=== PATIENT | male | born 1930 | race Caucasian/White ===

== ENCOUNTER 2017-01-10 15:29 | Emergency (ER) | payer OTHER ==
[2017-01-10 15:37] VITALS: BP 145/81
--- NOTE | 2017-01-10 15:49 | PROVIDER DOCUMENTATION ---
HPI-Abdominal Pain/GI Problem - General Source: patient - History of Present Illness-ABD Nature of Presenting Problems: 86 YOWM PRESENTS TO ED WITH C/O PT STATES LOWER ABDOMINAL PAIN AND CONSTIPATION. PT STATES HE HAS BEEN ON [place] FROM SURGERY X 2 WEEKS AND PT STATES HE HAS NOT HAD A B/M SINCE 3 DAYS AGO. Abdominal Pain Onset Location: reports: generalized abdomen (LOWER) Pain Radiation: reports: no radiation Quality of Pain: reports: aching, cramping Severity in ED: reports: moderate Onset/Duration: reports: 3 days ago Timing: reports: still present Activities at Onset: reports: light activity Exposure to sick contacts?: No Modifying Factors: improves with: nothing Associated Symptoms: reports: constipation Last BM: 3 days ago Dark Stools Present?: reports: none noticed Rectal Bleeding: reports: none Rectal Pain: reports: none Emesis Description: reports: none Bruising or Bleeding Gums?: No Similar Symptoms Previously?: No Recently seen or treated by another doctor?: No <Kishor Mayer - Last Filed: 01/10/17 16:03> <Hubert Carrillo - Last Filed: 01/10/17 18:25> - General Chief Complaint: Constipation Stated Complaint: CONSTIPATION Time Seen by Provider: 01/10/17 15:49 Allergies/Adverse Reactions: Patient Allergies Allergy/AdvReac Type Severity Reaction Status Date / Time Penicillins Allergy HIVES Verified 12/22/16 08:56 Home Medications: Home Medication List Medication Instructions Recorded Confirmed Last Taken Type Multivitamins/Minerals [Centrum 1 each PO DAILY 11/02/16 12/22/16 12/21/16 21: 00 History Silver] Budesonide/Formoterol Fumarate 1 puff INH BID 11/23/16 12/22/16 12/21/16 21:00 History [Symbicort 80-4.5 Mcg Inhaler] Clotrimazole/Bmethasone Cream 1 applicatn TOP BID PRN 11/23/16 12/22/16 21:00 History [Lotrisone Cream] Finasteride [Proscar] 5 mg PO DAILY #30 tablet 12/02/16 12/22/16 12/21/16 21:00 Rx Hydrochlorothiazide 12.5 mg PO DAILY 12/21/16 12/22/16 12/21/16 21:00 History Hydrocodone/APAP 5 mg/325 mg 1 each PO Q8H PRN PRN #0 tablet 12/26/16 Unknown Rx [[place]-5] Sennosides/Docusate Sodium 1 each PO BID #30 tablet 12/26/16 Unknown Rx [Pericolace] Sulfamethoxazole/Tmp D.s. [Septra 0.5 each PO BID #15 tablet 12/26/16 Unknown Rx Ds] Review of Systems - Adult - REVIEW OF SYSTEMS - ADULT Constitutional: denies: chills, fever Eyes: reports: no symptoms reported Ears, Nose, Mouth & Throat: reports: no symptoms reported Cardiovascular: denies: chest pain, palpitations, syncope Respiratory: denies: cough, shortness of breath, wheezing Gastrointestinal: reports: abdominal pain, constipation. denies: diarrhea, nausea, vomiting Genitourinary: reports: no symptoms reported Musculoskeletal: denies: back pain, neck pain Integumentary: reports: no symptoms reported Neurological: denies: dizziness/vertigo, headache/migraines, syncope Psychiatric: reports: no symptoms reported Endocrine: reports: no symptoms reported Hematologic/Lymphatic: reports: no symptoms reported Allergic/Immunologic: reports: no symptoms reported All Other Systems: Reviewed and Negative <Kishor Mayer - Last Filed: 01/10/17 16:03> Past History - Adult - PAST MEDICAL HISTORY-ADULT Review of Records: reports: Nursing Assessment Review, Medications Reviewed - IMMUNIZATION STATUS Childhood Immunizations: See Nurse Assessment Flu Vaccine: See Nurse Assessment - SOCIAL HISTORY Smoking: denies Substance Use: denies Alcohol Use Frequency: never Living Situation: alone <Kishor Mayer - Last Filed: 01/10/17 16:03> - PAST MEDICAL HISTORY-ADULT Major Childhood Illnesses: reports: denies history Cardiovascular: reports: HTN Respiratory: reports: denies history Gastrointestinal: reports: denies history Obstetrical/Gynecological: reports: denies history Genitourinary: reports: denies history Musculoskeletal: reports: denies history Neurological: reports: denies history Endocrine/Immune: reports: denies history Other Conditions: reports: denies history - PRIOR SURGERIES/PROCEDURES Surgical/Procedure History: reports: reviewed, not pertinent - IMMUNIZATION STATUS Childhood Immunizations: See Nurse Assessment Flu Vaccine: See Nurse Assessment - FAMILY HISTORY Family History: reviewed, not pertinent <Hubert Carrillo - Last Filed: 01/10/17 18:25> Physical Exam-General - CONSTITUTIONAL General Appearance: alert, moderate distress - EYES Eyes: PERRL/EOMI, pink conjunctivae - HEAD, EARS, NOSE, MOUTH & THROAT HENMT: normocephalic/atraumatic, moist mucous membranes - NECK Neck: non-tender, full range of motion, supple - RESPIRATORY Respiratory: chest non-tender, lungs clear, normal breath sounds - CARDIOVASCULAR Cardiovascular: normal peripheral pulses, tachycardia - GASTROINTESTINAL (ABDOMEN) Abdominal Exam: normal bowel sounds, soft, tenderness (LOWER) - LYMPHATIC Lymphatic: no adenopathy - MUSCULOSKELETAL Back Exam: normal inspection, no CVA tenderness, no vertebral tenderness Extremity: normal range of motion, non-tender - SKIN Integumentary: normal color, normal turgor, warm/dry - NEUROLOGIC Neurologic: grossly normal - PSYCHIATRIC Psych/Mental Status: oriented x 3 <Kishor Mayer - Last Filed: 01/10/17 16:03> Progress - PLAN OF CARE/RESULTS Progress/Plan/Lab Results: Orders Category Date Time Status FLAT/UPRIGHT ABD/1 VIEW CHEST [RAD] Stat Exams 01/10/17 16:04 Draft Orders Category Date Time Status FLAT/UPRIGHT ABD/1 VIEW CHEST [RAD] Stat Exams 01/10/17 16:04 Draft 1700--DISCUSSED PATIENT, REVIEWED RADIOLOGY RESULTS WITH DR. HERNDON. DR. HERNDON RECOMMENDS 1 TUBE(60ML) OF [place] JELLY PER RECTUM VIA CATH TIP SYRINGE AND THEN GIVE RELISTOR INJECTION. 1814--PATIENT HAD +BM AFTER RELISTOR GIVEN. STATES ABD PAIN HAS RESOLVED AND REPORTS "FEELING BETTER AND READY TO GO HOME". - XRAY 1 XRAY Study: Abdomen Impression: Abnormal XRAY Interpretation: CONSTIPATION/IMPACTION PER RADIOLOGIST REPORT. <Hubert Carrillo - Last Filed: 01/10/17 18:25> Departure <Kishor Mayer - Last Filed: 01/10/17 16:03> - Departure Time of Disposition Order: 18:20 Certified Medical Emergency: Emergent <Hubert Carrillo - Last Filed: 01/10/17 18:25> - Departure DIAGNOSIS: Constipation due to pain medication Disposition: HOME 01 Condition: Good Additional Instructions: USE OVER THE COUNTER STOOL SOFTENER WHILE TAKING PAIN MEDICATIONS TO HELP AVOID CONSTIPATION. Referrals: Luna Card MD [Primary Care Provider] - Attestation - Scribe Verification/Attestation Scribe:: Kishor Mayer Acting as Scribe for:: Hubert Carrillo Scribe documention review:: This chart was documented by a scribe and accurately reflects the service the provider performed and the decisions made by the provider. <Kishor Mayer - Last Filed: 01/10/17 16:03> - Physician/ ROMAN Attestation Patient care was provided by Advanced Practice Provider:: Yes Advanced Practice Provider:: Hubert Carrillo Advanced Practice Provider documentation review:: The Mid-level provider documentation, treatment plan and medical decision making was reviewed by the physician who agrees with all treatment and medical decision making by the MLP. <Hubert Carrillo - Last Filed: 01/10/17 18:25> Physician Attestation
--- NOTE | 2017-01-10 16:50 | Diag Imaging Result Document ---
PROCEDURE NAME: FLAT/UPRIGHT ABD/1 VIEW CHEST - 01/10/2017 FRONTAL CHEST X-RAY AND 2 VIEWS OF THE ABDOMEN: COMPARISON: 11/23/2016. FINDINGS: There is some colon under the right hemidiaphragm, which has occurred previously. Otherwise, the lungs are clear and the heart size is normal. There is severe constipation with a rectal stool impaction. There is a rectal stool ball measuring about 8 x 16 cm. No small-bowel obstruction or free air. IMPRESSION: Severe constipation with rectal stool impaction.
[2017-01-10] MEDS ORDERED: RELISTOR SUBQ ONE (17:06)
== END 2017-01-10 18:32 | disposition home or self-care (01) ==
LOC: P.ED 15:29
DX: K59.03 Drug induced constipation (principal); T50.905A Adverse effect of unspecified drugs, medicaments and biological substances, initial encounter; R10.30 Lower abdominal pain, unspecified; R10.84 Generalized abdominal pain; R00.0 Tachycardia, unspecified; R10.819 Abdominal tenderness, unspecified site; I10 Essential (primary) hypertension; Z79.899 Other long term (current) drug therapy
CPT/HCPCS: 74022

== ENCOUNTER 2019-11-08 09:44 | Inpatient (IN) ==
--- NOTE | 2019-11-08 10:15 | PROVIDER DOCUMENTATION ---
This chart was entered by Felicity Bagley Scribe, acting as scribe for Loree Prescott CRNP. HPI-General Adult - General Chief Complaint: SEPSIS ALERT - D Stated Complaint: BACK PAIN Time Seen by Provider: 11/08/19 09:45 Source: patient Allergies/Adverse Reactions: Patient Allergies Allergy/AdvReac Type Severity Reaction Status Date / Time Penicillins Allergy HIVES Verified 07/09/18 10:52 Home Medications: Home Medication List Medication Instructions Recorded Confirmed Last Taken Type Furosemide 20 mg PO DAILY 07/08/18 11/08/19 07/09/18 06:00 History Potassium Chloride E.r. [Micro-K] 10 meq PO DAILY 07/08/18 11/08/19 07/09/18 06:00 History Tamsulosin HCl 0.4 mg PO DAILY 07/08/18 11/08/19 07/09/18 06:00 History Iron Carbonyl/Vit C/Vit B12/FA 1 ea PO DAILY #30 tab 07/13/18 11/08/19 Unknown Rx [Icar-C Plus] Losartan Potassium 1 tab PO DAILY 11/08/19 11/08/19 Unknown History Metoprolol Tartrate 1 tab PO BID 11/08/19 11/08/19 Unknown History - History of Present Illness -Gen Adult Nature of Presenting Problems: 89 y/o male presents to ED with L lower back pain onset 3 days ago. Pt reports getting in and out of bed is painful. Pt denies injury or urinary symptoms. Pt states he has not had a bowel movement in 4 days. Pt is alert and oriented. Location of Pain/Injury: reports: back Pain Radiation: reports: no radiation Quality of Pain: reports: sharp Severity: reports: moderate Onset/Duration: reports: 3 days ago, 4 days ago Timing: reports: still present Context/Activities at Onset: reports: none Modifying Factors: worse with: movement, palpation Associated Symptoms: reports: back/neck pain (L lower back), constipation Similar Symptoms Previously?: No Recently seen or treated by another doctor?: No Review of Systems - Adult - REVIEW OF SYSTEMS - ADULT Constitutional: denies: chills, fever Eyes: reports: no symptoms reported Ears, Nose, Mouth & Throat: reports: no symptoms reported Cardiovascular: denies: chest pain, palpitations Respiratory: denies: cough, shortness of breath Gastrointestinal: reports: constipation. denies: abdominal pain, diarrhea, nausea, vomiting Genitourinary: reports: no symptoms reported Musculoskeletal: reports: back pain (L lower). denies: joint pain Integumentary: reports: no symptoms reported Neurological: reports: no symptoms reported Psychiatric: reports: no symptoms reported Endocrine: reports: no symptoms reported Hematologic/Lymphatic: reports: no symptoms reported Allergic/Immunologic: reports: no symptoms reported All Other Systems: Reviewed and Negative Past History - Adult - PAST MEDICAL HISTORY-ADULT Review of Records: reports: Old Records Reviewed, Nursing Assessment Review, Medications Reviewed Major Childhood Illnesses: reports: denies history Cardiovascular: reports: HTN Respiratory: reports: denies history Gastrointestinal: reports: denies history Obstetrical/Gynecological: reports: denies history Genitourinary: reports: denies history Musculoskeletal: reports: denies history Neurological: reports: denies history Endocrine/Immune: reports: denies history Other Conditions: reports: cataract/glaucoma - PRIOR SURGERIES/PROCEDURES Surgical/Procedure History: reports: reviewed, not pertinent, tonsillectomy, orthopedic (extremity) (bilateral knees), joint replacement (knee), other (cataract removal; prostate) - IMMUNIZATION STATUS Childhood Immunizations: See Nurse Assessment Flu Vaccine: See Nurse Assessment - FAMILY HISTORY Family History: reviewed, not pertinent - SOCIAL HISTORY Smoking: non-smoker Substance Use: none/never Alcohol Use Frequency: never Living Situation: family Physical Exam-General - PHYSICAL EXAM-ADULT Initial Vital Signs Reviewed: Yes - CONSTITUTIONAL General Appearance: appears well, alert, no apparent distress - EYES Eyes: PERRL/EOMI, pink conjunctivae - HEAD, EARS, NOSE, MOUTH & THROAT HENMT: normocephalic/atraumatic, moist mucous membranes, normal ENT inspection - NECK Neck: non-tender, full range of motion - RESPIRATORY Respiratory: chest non-tender, lungs clear, normal breath sounds - CARDIOVASCULAR Cardiovascular: normal peripheral pulses, regular rate, rhythm - GASTROINTESTINAL (ABDOMEN) Abdominal Exam: normal bowel sounds, non tender, soft - MUSCULOSKELETAL Back Exam: normal inspection, no vertebral tenderness, CVA tenderness (L) Extremity: normal range of motion - SKIN Integumentary: normal color, warm/dry - NEUROLOGIC Neurologic: grossly normal - PSYCHIATRIC Psych/Mental Status: normal mood/affect, normal thought content, normal thought process, oriented x 3 Progress - PLAN OF CARE/RESULTS Progress/Plan/Lab Results: Vital Signs - 8 hr 11/08/19 09:49 Temperature 97.4 F L Pulse Rate 90 Respiratory Rate 25 H Blood Pressure 141/98 O2 Sat by Pulse Oximetry 92 L Orders Category Date Time Status Cardiac Monitoring DIRECTED Care 11/08/19 09:54 Active IV Insertion ORDERED Care 11/08/19 09:54 Active Notify MD of + Sepsis Screen NOW Care 11/08/19 09:54 Active Notify Physician As Ordered Care 11/08/19 09:54 Active CHEST-1 VIEW [RAD] Stat Exams 11/08/19 09:54 Taken BLOOD CULTURE [BLDCUL] Stat Lab 11/08/19 09:54 Uncollected CBC WITH DIFF [HEME] Stat Lab 11/08/19 09:54 Uncollected CK PROFILE [SP CHEM] Stat Lab 11/08/19 09:54 Uncollected COMPREHENSIVE METABOLIC PANEL [CHEM] Stat Lab 11/08/19 09:54 Uncollected LACTATE, PLASMA [CHEM] Lab 11/08/19 10:00 Uncollected LACTATE, PLASMA [CHEM] Lab 11/08/19 13:00 Uncollected LACTATE, PLASMA [CHEM] Lab 11/08/19 16:00 Uncollected PROTIME WITH INR [COAG] Stat Lab 11/08/19 09:54 Uncollected PTT [COAG] Stat Lab 11/08/19 09:54 Uncollected TROPONIN T Stat Lab 11/08/19 09:54 Uncollected URINALYSIS W/POSS RFLX CULT [URINALYSIS] Stat Lab 11/08/19 09:45 Uncollected Oxygen Device Stat Oth 11/08/19 09:54 Active Laboratory Tests 11/08/19 11/08/19 11/08/19 10:19 10:19 10:19 WBC 10.29 RBC 4.60 L Hgb 14.7 Hct 44.6 MCV 97.0 MCH 32.0 H MCHC 33.0 RDW Std Deviation 13.9 Plt Count 206 MPV 10.0 Immature Gran % (Auto) 0.2 Neut % (Auto) 83.7 H Lymph % (Auto) 6.4 L [place] % (Auto) 8.6 Eos % (Auto) 0.8 Baso % (Auto) 0.3 Immature Gran # (Auto) 0.02 Neut # (Auto) 8.62 H Lymph # (Auto) 0.66 L [place] # (Auto) 0.88 H Eos # (Auto) 0.08 Baso # (Auto) 0.03 PT INR PTT (Actin FS) Sodium 141 Potassium 5.0 Chloride 103 Carbon Dioxide 23 L Anion Gap 15 BUN 38 H Creatinine 1.6 H Estimated GFR/1.73 m2 41 BUN/Creatinine Ratio 24 Glucose 117 H Calculated Osmolality 291 Calcium 9.4 Total Bilirubin 1.14 H AST 28 ALT 16 Alkaline Phosphatase 154 H Creatine Kinase 99 Troponin T Sws-B-Mncrvorkgvl Pept Total Protein 6.5 Albumin 4.1 Globulin 2.4 Albumin/Globulin Ratio 1.7 Plasma Lactate 1.3 Urine Source Urine Color Urine Turbidity Urine pH Ur Specific [place] Urine Protein Ur Glucose (Stick) Ur Ketones (Stick) Urine Blood Urine Nitrite Urine Bilirubin Urobilinogen Dipstick Urine Leukocytes Urine WBC (Auto) Urine RBC (Auto) U Epithel Cells (Auto) Urine Bacteria (Auto) Urine Crystals Small Round Cells Urine Casts Urine Yeast-like Cells 11/08/19 11/08/19 11/08/19 10:19 10:19 10:19 WBC RBC Hgb Hct MCV MCH MCHC RDW Std Deviation Plt Count MPV Immature Gran % (Auto) Neut % (Auto) Lymph % (Auto) [place] % (Auto) Eos % (Auto) Baso % (Auto) Immature Gran # (Auto) Neut # (Auto) Lymph # (Auto) [place] # (Auto) Eos # (Auto) Baso # (Auto) PT 18.5 H INR 1.51 PTT (Actin FS) 35.9 Sodium Potassium Chloride Carbon Dioxide Anion Gap BUN Creatinine Estimated GFR/1.73 m2 BUN/Creatinine Ratio Glucose Calculated Osmolality Calcium Total Bilirubin AST ALT Alkaline Phosphatase Creatine Kinase Troponin T 0.118 H Ldu-M-[place]ucke Pept 2743 H Total Protein Albumin Globulin Albumin/Globulin Ratio Plasma Lactate Urine Source Urine Color Urine Turbidity Urine pH Ur Specific [place] Urine Protein Ur Glucose (Stick) Ur Ketones (Stick) Urine Blood Urine Nitrite Urine Bilirubin Urobilinogen Dipstick Urine Leukocytes Urine WBC (Auto) Urine RBC (Auto) U Epithel Cells (Auto) Urine Bacteria (Auto) Urine Crystals Small Round Cells Urine Casts Urine Yeast-like Cells 11/08/19 11:20 WBC RBC Hgb Hct MCV MCH MCHC RDW Std Deviation Plt Count MPV Immature Gran % (Auto) Neut % (Auto) Lymph % (Auto) [place] % (Auto) Eos % (Auto) Baso % (Auto) Immature Gran # (Auto) Neut # (Auto) Lymph # (Auto) [place] # (Auto) Eos # (Auto) Baso # (Auto) PT INR PTT (Actin FS) Sodium Potassium Chloride Carbon Dioxide Anion Gap BUN Creatinine Estimated GFR/1.73 m2 BUN/Creatinine Ratio Glucose Calculated Osmolality Calcium Total Bilirubin AST ALT Alkaline Phosphatase Creatine Kinase Troponin T Zik-F-Bcpwfqhzguo Pept Total Protein Albumin Globulin Albumin/Globulin Ratio Plasma Lactate Urine Source CLEAN CATCH Urine Color YELLOW Urine Turbidity CLEAR Urine pH 6.0 Ur Specific [place] 1.020 Urine Protein 50 A Ur Glucose (Stick) NEGATIVE Ur Ketones (Stick) NEGATIVE Urine Blood SMALL A Urine Nitrite NEGATIVE Urine Bilirubin NEGATIVE Urobilinogen Dipstick NORMAL Urine Leukocytes NEGATIVE Urine WBC (Auto) <10 Urine RBC (Auto) <10 U Epithel Cells (Auto) <10 Urine Bacteria (Auto) NEGATIVE Urine Crystals NONE SEEN Small Round Cells Not Reportable Urine Casts Not Reportable Urine Yeast-like Cells Not Reportable Result Diagrams: 11/08/19 10:19 11/08/19 10:19 - EKG 1 Time of EKG reading by physician:: 11:07 EKG Read and Signed by:: Dunia Tay EKG Interpretation (*Must complete 3 of following elements*): Abnormal Rate: 87 Rhythm: Afib [place]: left QRS: other (low voltage QRS; possible lateral infarct) MN Interval: normal ST Wave: normal Comments: No STEMI. -Dr. Tay - XRAY 1 XRAY Study: Chest ([facility] - [address] [place] [address] [address], [place] [address] [facility] - [address] [place] [address] Department of Imaging Patient: CARISA GUERRA Date: 11/08/19MR#: [id number] : 1930DM Status: REG ERAt#: [id number] Age/Sex: 89/MRoom/Bed: Loc: ED Ordering Physician: Loree Prescott Family Physician: Luna Card MD Reason for Procedure: positive sepsis screen ___ Signed EXAM: CHEST-1 VIEW INDICATION: positive sepsis screen TECHNIQUE: One view COMPARISON: 07/09/2018 FINDINGS: There is elevation of the right hemidiaphragm like the previous study. There is blunting of the left costophrenic angle suggesting a possible small effusion. The left costophrenic a ngle is indistinct. This may represent atelectasis +/- infiltrate. There is stable cardiomegaly. Central vasculature is unremarkable. IMPRESSION: Cardiomegaly with possible small effusion and questionable atelectasis and/or infiltrate at the left lung base. Electronically signed by Desmond Burr 11/08/2019 11:29 AM 11/08/19 1129 Interpreting Physician: Desmond Burr MD Dictated Date/Time: 11/08/19 1127 cc: Loree Prescott; Luna Card MD) Impression: See EMR Report ([facility] - [address] [place] [address] [address], [place] [address] [facility] - [address] [place] [address] Department of Imaging Patient: CARISA GUERRA Date: 11/08/19#: [id number] : 2ADM Status: REG ERAcct#: [id number] Age/Sex: 89/MRoom/Bed: Loc: ED Ordering Physician: Loree Prescott Family Physician: Luna Card MD Reason for Procedure: positive sepsis screen Signed EXAM: CHEST-1 VIEW INDICATION: positive sepsis screen TECHNIQUE: One view COMPARISON: 07/09/2018 FINDINGS: There is elevation of the right hemidiaphragm like the previous study. There is blunting of the left costophrenic angle suggesting a p ossible small effusion. The left costophrenic angle is indistinct. This may represent atelectasis +/- infiltrate. There is stable cardiomegaly. Central vasculature is unremarkable. IMPRESSION: Cardiomegaly with possible small effusion and questionable atelectasis and/or infiltrate at the left lung base. Electronically signed by Desmond Burr 11/08/2019 11:29 AM 11/08/19 1129 Interpreting Physician: Desmond Burr MD Dictated Date/Time: 11/08/19 1127 cc: Loree Prescott; Luna Card MD) XRAY Interpretation: See note - CONSULTS/PCP/HOSPITALIST Notification #1 *Consult/PCP/Hospitalist*: Dr. Card Time Discussed: 13:12 Reason/Comments: Admission Consult Disposition: Admit (Order stat Echo and admit to PVC) Departure - Departure Date of Disposition Decision: 11/08/19 Time of Disposition Decision: 11:55 DIAGNOSIS: Shortness of breath, New onset atrial fibrillation Disposition: ADMITTED INPATIENT 09 Certified Medical Emergency: Emergent Condition: Stable Referrals and Follow-Ups: Luna Card MD [Primary Care Provider] - - Critical Care Note This patient required my direct & personal management of CC.: No Attestation - Physician/ ROMAN Attestation Patient care was provided by Advanced Practice Provider:: Yes Advanced Practice Provider:: Loree Prescott Advanced Practice Provider documentation review:: The Mid-level provider documentation, treatment plan and medical decision making was reviewed by the physician who agrees with all treatment and medical decision making by the P. The physician spent face to face time with patient:: No Advanced Practice Provider documentation review:: Supervising physician onsite and consulted in the evaluation and care of this patient. The physician did not have a face to face encounter with the patient. This chart was documented by the indicated scribe, (Felicity Bagley Scribe) and accurately reflects the services I performed and decisions made by me, Loree Prescott CRNP, as attested by the provider's signature.
[2019-11-08 10:37] LABS: BASO# 0.03 X1000 (0.0-0.2); BASO% 0.3 % (0.0-0.8); EOS# 0.08 X1000 (0.0-0.7); EOS% 0.8 % (0.0-10.0); HEMATOCRIT 44.6 % (42.0-52.0); HEMOGLOBIN 14.7 g/dL (14.0-18.0); IMM GRAN# 0.02 X1000 (0.0-0.04); IMM GRAN% 0.2 % (0.0-0.5); LYMPH# 0.66 X1000 (1.2-3.4); LYMPH% 6.4 % (20.5-51.1); MONO# 0.88 X1000 (0.11-0.59); MONO% 8.6 % (1.7-9.3); NEUT# 8.62 X1000 (1.4-6.5); NEUT% 83.7 % (42.2-75.2); PLT 206 X1000 (130-400); RDW 13.9 % (11.5-14.5); WBC 10.29 X1000 (4.8-10.8)
[2019-11-08 10:51] LABS: INR 1.51; PROTIME 18.5 Seconds (11.0-16.0); PTT 35.9 Seconds (22.3-41.8)
[2019-11-08 11:02] LABS: ALB/GLOB RATIO 1.7; ALBUMIN 4.1 g/dL (3.5-5.0); CALCIUM 9.4 mg/dL (8.8-10.2); CREATININE 1.6 mg/dL (0.7-1.2); TOTAL BILIRUBIN 1.14 mg/dL (0.20-1.00); TOTAL PROTEIN 6.5 g/dL (6.3-8.3)
[2019-11-08 11:24] LABS: URINE SOURCE CLEAN CATCH
[2019-11-08 11:32] LABS: BILIRUBIN URINE NEGATIVE (NEGATIVE); BLOOD URINE SMALL (NEGATIVE); COLOR YELLOW; GLUCOSE URINE NEGATIVE (NEGATIVE); KETONE URINE NEGATIVE (NEGATIVE); LEUKOCYTES URINE NEGATIVE (NEGATIVE); NITRITE URINE NEGATIVE (NEGATIVE); PROTEIN URINE 50 mg/dL (NEGATIVE); TURBIDITY URINE CLEAR (CLEAR); UROBILINOGEN URINE NORMAL (NORMAL)
--- NOTE | 2019-11-08 11:32 | Diag Imaging Result Doc PS360 ---
EXAM: CHEST-1 VIEW INDICATION: positive sepsis screen TECHNIQUE: One view COMPARISON: 07/09/2018 FINDINGS: There is elevation of the right hemidiaphragm like the previous study. There is blunting of the left costophrenic angle suggesting a possible small effusion. The left costophrenic angle is indistinct. This may represent atelectasis +/- infiltrate. There is stable cardiomegaly. Central vasculature is unremarkable. IMPRESSION: Cardiomegaly with possible small effusion and questionable atelectasis and/or infiltrate at the left lung base. Electronically signed by Desmond Burr 11/08/2019 11:29 AM
[2019-11-08 11:40] LABS: UR EPITHELIAL CELLS <10 /HPF (<10); URINE BACTERIA NEGATIVE /HPF; URINE RBC <10 /HPF (<10); URINE WBC <10 /HPF (<10)
[2019-11-08 11:41] LABS: URINE CRYSTALS NONE SEEN
[2019-11-08] MEDS ORDERED: ROCEPHIN 1 GM in NS 50 ML IV ONE (11:45)
[2019-11-08] MEDS ORDERED: LASIX IV ONE (12:32)
[2019-11-08] MEDS ORDERED: CARDIZEM IV ONE (12:34)
[2019-11-08] MEDS ORDERED: ZITHROMAX 500 MG/NS 500 MG/250 ML IVPB IV ONE (12:44)
[2019-11-08 13:08] LABS: ALLEN TEST YES; BE -3.7 mmoll (-3.0-3.0); BLOOD TYPE ARTERIAL; METHB 1.1 % (0.0-1.5); O2(CT) 21.7 mL/dL (15.0-23.0); O2HB 96.1 % (95.0-99.0); PCO2(98.6) 35 mmHg (35-45); PO2(98.6) 96 mmHg (60-100); SAMPLE BLOOD; SAO2 99.3 % (95.0-100.0); pH(98.6) 7.38 (7.35-7.45)
[2019-11-08 13:09] LABS: MODALITY CANNULA
--- NOTE | 2019-11-08 13:39 | EKG Report ---
Test Performed on : 11/08/2019 11:03:19 AM Test Reason : BACK PAIN Blood Pressure : / mmHG Vent. Rate : 087 BPM Atrial Rate : 500 BPM P-R Int : 000 ms QRS Dur : 090 ms QT Int : 368 ms P-R-T Axes : 000 -38 096 degrees QTc Int : 442 ms Atrial fibrillation. Left axis deviation Low voltage QRS Possible Lateral infarct , age undetermined Abnormal ECG When compared with ECG of 11-JUL-2018 07:26, No significant change was found Unconfirmed Result
--- NOTE | 2019-11-08 16:21 | Diag Imaging Result Doc PS360 ---
EXAM: KUB ABDOMEN 11/08/2019 HISTORY: abd pain TECHNIQUE: KUB COMMENT: There is gas and stool throughout the colon. There is no evidence of bowel obstruction organomegaly or mass. Compared to 01/10/2017 the quantity of stool and dilatation of the colon present at that time has diminished. IMPRESSION: Constipation. Electronically signed by Philippe Arshad 11/08/2019 4:18 PM
--- NOTE | 2019-11-08 16:28 | ECHO REPORT ---
ORDER DATE: 11/08/2019 PROCEDURE: 2D echocardiogram. INTERPRETING PHYSICIAN: Bryant Squires MD ECHOCARDIOGRAPHIC MEASUREMENTS: 1. Interventricular septum 1.7. 2. Left ventricular posterior wall 1.4. 3. Diastolic diameter 5.6. 4. Left atrium 4.3 cm. 5. Aorta 3.4. SUMMARY OF THE 2-DIMENSIONAL IMAGIN. Mildly dilated left ventricle with an estimated ejection fraction of 25 to 30 percent. There is global hypokinesis. 2. Aortic valve leaflets are trileaflet. 3. Mitral valve was normal. There is mitral annular calcification. 4. Tricuspid valve was normal. 5. There is moderate mitral regurgitation. There is no aortic stenosis or regurgitation. There is tricuspid regurgitation. Peak velocity across the tricuspid valve was 3.5 m/sec. 6. There is moderate circumferential pericardial effusion. There is no evidence of tamponade. cc: MD Reno Cortes MD
[2019-11-08] MEDS ORDERED: MOTRIN PO ONE (17:38)
[2019-11-08] MEDS ORDERED: SODIUM CHLORIDE 0.9% INJ SCH (19:00)
[2019-11-08] MEDS ORDERED: NEXIUM IV SCH (19:00)
[2019-11-08] MEDS: SODIUM CHLORIDE 0.9% INJ SCH (20:02)
[2019-11-08] MEDS: LOVENOX SUBQ SCH (20:02)
[2019-11-08] MEDS: LOPRESSOR PO SCH (20:02)
[2019-11-08] MEDS: SOLU-MEDROL IV SCH (20:02)
[2019-11-08] MEDS: PROTONIX IV SCH (20:02)
[2019-11-09] MEDS: SOLU-MEDROL IV SCH ×3 (03:39→20:09)
[2019-11-09] MEDS: TYLENOL PO PRN ×2 (03:39→14:27)
--- NOTE | 2019-11-09 07:21 | HISTORY AND PHYSICAL ---
CHIEF COMPLAINT: Lower back pain and difficulty in breathing. HISTORY OF PRESENT ILLNESS: This is an 89-year-old white gentleman who is well known to me. Basically, he came in with lower back pain, not able to walk. The patient was seen in the emergency room. He was found to have low lung volumes and cardiomegaly. He has a chronic atrial fibrillation and cardiomegaly due to chronic pericardial effusion. There is no tamponade in the past. 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 Anyhow, he is not able to walk, and basically admitted to the hospital for shortness of breath and also pain control, physical therapy, and he was slowly deconditioning. There is no help at home. PAST MEDICAL HISTORY: Chronic renal failure, tinea cruris, metabolic syndrome, hypertension, chronic atrial fibrillation, chronic pericardial effusion without tamponade, right rotator cuff repair, osteoarthritis of left knee and right hip. He has flat feet. BPH, status post TURP. Basal cell cancer of the nose. Let fibula fracture. PAST SURGICAL HISTORY: Tonsillectomy, bilateral knee arthroplasty, bilateral cataract surgery, history of left fibular fracture, and right heel fracture. ALLERGIES: Reported to penicillin. SOCIAL HISTORY: Single. No children. Retired. Lives in [place]. No smoking. No alcohol. FAMILY HISTORY: Father of heart failure at 69. Mom of respiratory failure at 94. HEALTH MAINTENANCE: Flu vaccine in 2019. Pneumococcal vaccine 13 was given in 2013. MEDICATIONS: Prior to admission: 1. Potassium 10 mEq daily. 2. Flomax 0.4 daily. 3. Lasix 20 daily. 4. Losartan 50 daily. 5. Metoprolol 25 daily. 6. Icar C Plus 1 tablet daily. REVIEW OF SYSTEMS: HEENT: No headache. No vision problem. No earache. No sore throat. Neck: No goiter. No lymphadenopathy. No bruit. Cardiopulmonary: No chest pain, shortness of breath, PND, orthopnea. GI: No nausea, vomiting, abdominal pain. Extremities: Lower back pain, joint pains, not able to walk, localized pain. No radiation. No weakness. Neurological: No neurological symptoms or weakness. PHYSICAL EXAMINATION: VITALS: Afebrile. Pulse is 90, and blood pressure is slightly elevated. GENERAL: The patient is in a lot of pain. HEENT: Atraumatic, normocephalic. Pupils equal, and react to light. Nose and throat within normal limits. NECK: Supple. No lymphadenopathy. No goiter. CHEST: Bilateral air entry. HEART: Distant heart sounds. ABDOMEN: Belly is soft, obese, nontender. EXTREMITIES: No peripheral edema or cyanosis. No obvious neurological deficits. INVESTIGATIONS: 1. White cell count 10, hematocrit 44 and platelets 206,000. PT 18, INR 1.5. ABG pH is 7.38, pCO2 35, PO2 96 on 28%. SMA 7: BUN 38, creatinine 1.6 and glucose 117. Troponin slightly positive. ProBNP 2700. CK was negative. Urinalysis is clear. 2. Abdominal x-ray with constipation. 3. Echocardiography report with chronic pericardial effusion. No tamponade. LV function reduced to 25 to 30 percent. 4. EKG chronic atrial fibrillation. 5. Chest x-ray low lung volumes, cardiomegaly, and possible infiltrate in the lung bases. ASSESSMENT AND PLAN: 1. An 89-year-old white male admitted to the hospital with intractable back pain. Plan is IV steroids. Follow up on x-rays and PT consult. 2. Deconditioning. 3. Constipation. MiraLAX. 4. Congestive heart failure, systolic dysfunction, chronic atrial fibrillation. Continue on metoprolol and losartan. 5. DVT prophylaxis with Lovenox and GI prophylaxis with IV Nexium. 6. BPH status post TURP on Flomax. 7. Chronic kidney disease stable and cardiomegaly, chronic pericardial effusion. Followup on echo. No signs of tamponade. Incentive spirometry. Will follow up over the weekend. If no better, we will do further workup on the back. cc: Reno Card MD
[2019-11-09] MEDS: MIRALAX PO SCH (08:20)
[2019-11-09] MEDS: LOPRESSOR PO SCH ×2 (08:20→20:09)
[2019-11-09] MEDS: LASIX PO SCH (08:20)
[2019-11-09] MEDS: ICAR-C PLUS PO SCH (08:20)
[2019-11-09] MEDS: FLOMAX PO SCH (08:20)
[2019-11-09] MEDS: COZAAR PO SCH (08:21)
[2019-11-09] MEDS ORDERED: MICRO-K PO SCH (09:00)
[2019-11-09] MEDS: KLOR-CON PO SCH (09:15)
--- NOTE | 2019-11-09 14:20 | PROGRESS NOTE ---
DATE: 11/09/2019 Mr. Estrada was admitted yesterday. He has cardiomegaly with either a pleural effusion or infiltrate on the left side. He has chronic constipation and chronic atrial fibrillation. EKG shows a possible lateral wall OH. Echocardiogram revealed global hypokinesis, moderate mitral regurgitation, moderate pericardial effusion, and ejection fraction of 25% to 30%. Overall, condition is unchanged. We will continue with the current management on him. -6 cc: MD Reno Parsons MD
[2019-11-09] MEDS: ROCEPHIN 1 GM in NS 50 ML IV SCH (14:22)
--- NOTE | 2019-11-09 14:24 | PROGRESS NOTE ---
DATE: 11/09/2019 ADDENDUM REPORT: For his possible infiltrate on the left side he got IV ceftriaxone and azithromycin IV yesterday and it has not been restarted. We will probably give him ceftriaxone 1 g IV daily as his white count is 10.29 and he has some persistent cough and mild shortness of breath. The patient has the possibility of left lower lobe pneumonia. cc: MD Reno Parsons MD
[2019-11-09] MEDS: SODIUM CHLORIDE 0.9% INJ SCH (20:09)
[2019-11-09] MEDS: PROTONIX IV SCH (20:09)
[2019-11-09] MEDS: LOVENOX SUBQ SCH (20:09)
[2019-11-10] MEDS: TYLENOL PO PRN ×2 (00:35→21:20)
[2019-11-10] MEDS: SOLU-MEDROL IV SCH ×3 (03:24→21:20)
[2019-11-10] MEDS: ICAR-C PLUS PO SCH (08:01)
[2019-11-10] MEDS: LASIX PO SCH (08:01)
[2019-11-10] MEDS: FLOMAX PO SCH (08:01)
[2019-11-10] MEDS: KLOR-CON PO SCH (08:01)
[2019-11-10] MEDS: MIRALAX PO SCH (08:01)
[2019-11-10] MEDS: LOPRESSOR PO SCH ×2 (08:01→21:21)
[2019-11-10] MEDS: COZAAR PO SCH (08:01)
--- NOTE | 2019-11-10 11:01 | Diag Imaging Result Doc PS360 ---
EXAM: LUMBAR SPINE 11/10/2019 HISTORY: back pain TECHNIQUE: Lumbosacral spine with obliques six views COMMENT: There is marked osteopenia. There is near vertebral plana of the L1 vertebral body particularly anteriorly. Due to motion the study is somewhat suboptimal on some of the images. There is marked disc space narrowing at the L to three level. There are no previous lumbar spine series available for comparison however in comparison with the abdominal series from 01/10/2017 the L1 vertebral compression was not present previously. There is no evidence of subluxation. IMPRESSION: Compression fracture of L1 of uncertain age. Severe degenerative disc disease at L2-3. Osteoporosis. Electronically signed by Philippe Arshad 11/10/2019 10:59 AM
--- NOTE | 2019-11-10 12:00 | PROGRESS NOTE ---
DATE: 11/10/2019 Mr. Estrada says he is feeling better. He has chronic atrial fibrillation, pericardial effusion, congestive heart failure. He has severe back pain. Lumbosacral spine movements are painful. He is on steroids. His blood pressure was 154/97. So far, the culture studies have been negative on him. We will x-ray his lumbosacral spine. Overall condition is stable. -1 cc: MD Reno Parsons MD
[2019-11-10] MEDS: ROCEPHIN 1 GM in NS 50 ML IV SCH (14:23)
[2019-11-10] MEDS: PROTONIX IV SCH (21:20)
[2019-11-10] MEDS: SODIUM CHLORIDE 0.9% INJ SCH (21:21)
[2019-11-10] MEDS: LOVENOX SUBQ SCH (21:21)
[2019-11-11] MEDS: SOLU-MEDROL IV SCH ×4 (05:05→23:13)
[2019-11-11] MEDS: LASIX PO SCH (08:04)
[2019-11-11] MEDS: KLOR-CON PO SCH (08:04)
[2019-11-11] MEDS: COZAAR PO SCH (08:04)
[2019-11-11] MEDS: FLOMAX PO SCH (08:04)
[2019-11-11] MEDS: ICAR-C PLUS PO SCH (08:04)
[2019-11-11] MEDS: MIRALAX PO SCH (08:04)
[2019-11-11] MEDS: LOPRESSOR PO SCH ×2 (08:04→20:20)
[2019-11-11] MEDS: TYLENOL PO PRN ×2 (08:08→20:19)
[2019-11-11] MEDS: ROCEPHIN 1 GM in NS 50 ML IV SCH (13:31)
[2019-11-11] MEDS: LOVENOX SUBQ SCH (20:20)
[2019-11-11] MEDS: PROTONIX IV SCH (20:20)
[2019-11-11] MEDS: SODIUM CHLORIDE 0.9% INJ SCH (23:13)
--- NOTE | 2019-11-12 04:06 | PROGRESS NOTE ---
DATE: 11/11/2019 SUBJECTIVE: X-rays reviewed. Back pain is better. He had a chronic L1 compression fracture, and severe DJD changes at L2-L3 with osteoporosis. Pain is much better. He did not have any chest pain or shortness of breath. He is ambulating well with physical therapy. REVIEW OF SYSTEMS: None reported. Events noted over the weekend. PHYSICAL EXAMINATION: Vital Signs: Temperature is 97.7 degrees, pulse 66, blood pressure 113/65, and 94% on room air. HEENT: Within normal limits. Neck: Supple. No lymphadenopathy. No goiter. Abdomen: Belly is soft and nontender. Neurologic: No neurological deficits. LABORATORY: Blood cultures were negative. ASSESSMENT AND PLAN: 1. Back pain due to L1 compression fracture and DJD changes. Continue treatment with steroids, got better. 2. Chronic pericardial effusion, stable. 3. Chronic kidney disease stable. 4. Chronic systolic heart failure nonischemic cardiomyopathy. Continue on Cozaar, Lasix, and metoprolol. 5. DVT/GI prophylaxis as per order sheet. 6. Continue physical therapy. We will check the labs in the morning. If he is stable, consider rehab versus outpatient home health. LEVEL OF DOCUMENTATION: 25 minutes. cc: Reno Card MD
[2019-11-12] MEDS: SOLU-MEDROL IV SCH (06:12)
[2019-11-12 06:56] LABS: CALCIUM 9.6 mg/dL (8.8-10.2); CREATININE 1.7 mg/dL (0.7-1.2)
[2019-11-12 07:11] LABS: HEMATOCRIT 47.4 % (42.0-52.0); HEMOGLOBIN 15.3 g/dL (14.0-18.0); IMM GRAN# 0.02 X1000 (0.0-0.04); IMM GRAN% 0.2 % (0.0-0.5); LYMPH# 0.47 X1000 (1.2-3.4); LYMPH% 4.2 % (20.5-51.1); MCH 31.3 PG (27-31); MCHC 32.3 g/dL (33-37); MCV 96.9 FL (81-99); MONO# 0.48 X1000 (0.11-0.59); MONO% 4.2 % (1.7-9.3); MPV 10.8 FL (7.4-10.4); NEUT# 10.35 X1000 (1.4-6.5); NEUT% 91.4 % (42.2-75.2); PLT 220 X1000 (130-400); RBC 4.89 XMIL (4.7-6.1); RDW 13.6 % (11.5-14.5); WBC 11.32 X1000 (4.8-10.8)
[2019-11-12 07:30] LABS: POTASSIUM 6.4 mmol/L (3.5-5.1)
[2019-11-12] MEDS ORDERED: KAYEXALATE PO ONE (07:53)
[2019-11-12] MEDS: KLOR-CON PO SCH (08:51)
[2019-11-12] MEDS: FLOMAX PO SCH (08:51)
[2019-11-12] MEDS: LASIX PO SCH (08:51)
[2019-11-12] MEDS: ICAR-C PLUS PO SCH (08:51)
[2019-11-12] MEDS: MIRALAX PO SCH (08:52)
[2019-11-12] MEDS: LOPRESSOR PO SCH ×2 (08:52→20:07)
[2019-11-12] MEDS: COZAAR PO SCH (08:52)
[2019-11-12 09:37] LABS: LYMPHS 2 % (21-51); MONO 2 % (1-9); SEGS 96 % (42-75)
[2019-11-12] MEDS: ROCEPHIN 1 GM in NS 50 ML IV SCH (13:24)
[2019-11-12] MEDS: LOVENOX SUBQ SCH (20:07)
[2019-11-12] MEDS: SODIUM CHLORIDE 0.9% INJ SCH (20:07)
[2019-11-12] MEDS: PROTONIX IV SCH (20:07)
--- NOTE | 2019-11-12 23:24 | PROGRESS NOTE ---
DATE: 11/12/2019 SUBJECTIVE: The patient complains of back pain, especially when he is getting out of the bed. He is getting physical therapy. OBJECTIVE: Vital signs: Temperature is 98 degrees. Vitals are stable. Physical Exam: No change. No obvious deficits. INVESTIGATIONS: White cell count 11, hematocrit 47, platelets 220,000. Potassium 6.4, BUN 65, creatinine 1.7. ASSESSMENT AND PLAN: 1. Hyperkalemia. We will give a Kayexalate 1 dose. 2. Nonischemic cardiomyopathy with pericardial effusion, stable. 3. L1 compression fracture on IV steroids, back brace, physical therapy. Follow up on blood cultures are negative. 4. Constipation, on MiraLAX. 5. Benign prostatic hypertrophy, on Flomax. 6. Deep venous thrombosis prophylaxis with Lovenox. The patient is agreeable to go for rehab. Ordinary Seaman consult, waiting for bed. Continue present treatment. LEVEL OF DOCUMENTATION: Was 25 minutes. cc: Reno Card MD
[2019-11-13] MEDS: COZAAR PO SCH (08:44)
[2019-11-13] MEDS: FLOMAX PO SCH (08:44)
[2019-11-13] MEDS: ICAR-C PLUS PO SCH (08:44)
[2019-11-13] MEDS: LOPRESSOR PO SCH ×2 (08:44→20:39)
[2019-11-13] MEDS: MIRALAX PO SCH (08:44)
[2019-11-13] MEDS: LASIX PO SCH (08:44)
[2019-11-13] MEDS: SOLU-MEDROL IV SCH (08:44)
--- NOTE | 2019-11-13 10:41 | EKG Report ---
Test Performed on : 11/13/2019 10:36:10 AM Test Reason : low HR Blood Pressure : / mmHG Vent. Rate : 055 BPM Atrial Rate : 258 BPM P-R Int : 000 ms QRS Dur : 086 ms QT Int : 416 ms P-R-T Axes : 000 175 017 degrees QTc Int : 397 ms Atrial fibrillation. with slow ventricular response. Left posterior fascicular block Inferior infarct , age undetermined Anteroseptal infarct , age undetermined Abnormal ECG When compared with ECG of 08-NOV-2019 11:03, (Unconfirmed) Significant changes have occurred Confirmed by Ac JON, Hermes Tavares ([id number]) on 11/15/2019 7:00:47 PM
[2019-11-13] MEDS: KLOR-CON PO SCH (10:42)
[2019-11-13] MEDS: CITRACAL + D PO SCH (11:19)
[2019-11-13] MEDS: FORTICAL NAS SCH (11:19)
[2019-11-13 11:54] LABS: ALB/GLOB RATIO 1.3; ALBUMIN 3.5 g/dL (3.5-5.0); CALCIUM 9.1 mg/dL (8.8-10.2); CREATININE 1.4 mg/dL (0.7-1.2); MAGNESIUM 2.3 mg/dL (1.5-2.7); POTASSIUM 5.1 mmol/L (3.5-5.1); TOTAL BILIRUBIN 0.66 mg/dL (0.20-1.00); TOTAL PROTEIN 6.3 g/dL (6.3-8.3)
[2019-11-13] MEDS: ROCEPHIN 1 GM in NS 50 ML IV SCH (14:29)
[2019-11-13] MEDS: SODIUM CHLORIDE 0.9% INJ SCH (20:39)
[2019-11-13] MEDS: PROTONIX IV SCH (20:39)
[2019-11-13] MEDS: LOVENOX SUBQ SCH (20:39)
--- NOTE | 2019-11-13 22:54 | DISCHARGE SUMMARY ---
ADMISSION DATE: 11/08/2019 DISCHARGE DATE: 11/14/2019 DISCHARGING DIAGNOSES: 1. Intractable back pain due to osteoporotic L1 compression fracture. 2. Chronic kidney failure, creatinine 1.7, stage III. 3. Metabolic syndrome. 4. Hypertension. 5. Chronic atrial fibrillation. 6. Chronic pericardial effusion without tamponade. 7. Osteoarthritis of left knee, right hip. 8. Pes planus deformities. 9. Benign prostatic hypertrophy status post transurethral resection of the prostate. 10. History of left fibular fracture. 11. History of bilateral knee arthroplasty. 12. 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 HISTORY OF PRESENT ILLNESS: Please see the H and P that was done on the day of admission. In brief, he is an 89-year-old white male admitted to the hospital with intractable back pain, not able to ambulate. In the meantime, the patient has a positive troponin. As a result, he was admitted to the hospital. HOSPITAL COURSE: 1. For the back pain, he had an osteoporotic compression fracture for which the patient was given Citracal with vitamin D and calcitonin spray. He has got better with IV steroids, and he needs a back brace and physical therapy. I am not going to do any further workup unless there is neurological compromise. 2. Positive troponin is false positive. He denied any chest pain. He has a chronic atrial fibrillation with chronic pericardial effusion with EF 25%. He has some high potassium for which Kayexalate was given. Rest of the hospital course was uneventful. At the request of the patient, he is being transferred to rehab. LABORATORY DATA: CBC: White cell count 11, hematocrit 47, platelets 220,000. PT 18, INR 1.5. ABG: pH is 7.38, pCO2 35, pO2 96. SMA 7: Sodium 139, potassium 5.1, BUN 57, creatinine 1.4. ProBNP 2700. Blood cultures were negative. X-RAYS: Diffuse osteopenia near completion of L1 vertebral body anteriorly and disk disease at L2- L3. DISCHARGE INSTRUCTIONS: 1. Initiate flu vaccine prior to the discharge. Pneumococcal vaccine 13 was given in 2013, and we will hold the potassium, Flomax 0.4 daily, Lasix 20 daily Icar C Plus 1 tablet daily, metoprolol 25 p.o. b.i.d., losartan 50 mg daily. 2. Citracal with vitamin D 1 tablet daily, Rocaltrol 0.25 mcg every other day. 3. Calcitonin spray 1 spray in the nostril every day. 4. Back brace. 5. He needs an appointment on Monday to see Dr. Frazier for injection to the left eye for AMD disease. cc: Reno Card MD [facility]
--- NOTE | 2019-11-14 01:25 | PROGRESS NOTE ---
DATE: 11/13/2019 SUBJECTIVE: The patient's back pain is better, now with the less pain he is getting out of the bed some. Localized pain, no radiation, no weakness. He is walking with gait well. Nurses noted he had a little bit of shortness of breath. Bradycardia is chronic atrial fibrillation. Coreg has been held. No neurological symptoms. PHYSICAL EXAMINATION: Vital signs: Temperature is 97.6 degrees, pulse is 72, blood pressure 141/99, O2 saturation on 2 L nasal cannula 97%. HEENT: Within normal limits. Neck: Supple. Lungs: Poor air entry. Cardiovascular: Distant heart sounds. Abdomen: Soft, obese. Extremities: Flat feet. Neurologic: No obvious deficits. INVESTIGATIONS: Sodium 139, potassium 5.1, BUN 57, creatinine 1.4. EKG atrial fibrillation. ASSESSMENT AND PLAN: 1. Chronic back pain due to L1 compression fracture with osteoporosis. Continue Citracal with vitamin D and calcitonin spray. 2. Chronic atrial fibrillation, stable. 3. Nonischemic cardiomyopathy. Continue current medicine with metoprolol and losartan. 4. Hyperkalemia, better. 5. The patient is getting Avastatin treatment for the left eye on Monday. 6. Polisher Apprentice consult for fdc placement LEVEL OF DOCUMENTATION: 25 minutes. cc: Reno Card MD MTDD
[2019-11-14] MEDS ORDERED: PREVNAR 13 IM ONE (08:08)
[2019-11-14] MEDS: SOLU-MEDROL IV SCH (08:15)
[2019-11-14] MEDS: ICAR-C PLUS PO SCH (08:15)
[2019-11-14] MEDS: FLOMAX PO SCH (08:15)
[2019-11-14] MEDS: LASIX PO SCH (08:16)
[2019-11-14] MEDS: KLOR-CON PO SCH (08:16)
[2019-11-14] MEDS: LOPRESSOR PO SCH (08:16)
[2019-11-14] MEDS: COZAAR PO SCH (08:16)
[2019-11-14] MEDS: FORTICAL NAS SCH (08:17)
[2019-11-14] MEDS: MIRALAX PO SCH (08:18)
[2019-11-14] MEDS: CITRACAL + D PO SCH (08:18)
[2019-11-14 12:13] VITALS: BP 145/98
== END 2019-11-14 15:34 | DRG 543 ==
LOC: ED 09:44 → EDIPHOLD 13:46 → 2N 20:28
PROVIDERS: ADMIT Internal Medicine; ATTEND Internal Medicine

== ENCOUNTER 2020-01-07 06:19 | Inpatient (IN) ==
[2020-01-07] MEDS ORDERED: ZOFRAN IV ONE (06:29)
[2020-01-07] MEDS ORDERED: MORPHINE IV ONE (06:29)
--- NOTE | 2020-01-07 06:40 | PROVIDER DOCUMENTATION ---
HPI-General Adult - General Chief Complaint: Groin Pain Stated Complaint: SCROTAL PAIN, Time Seen by Provider: 01/07/20 08:45 Source: patient, EMS Allergies/Adverse Reactions: Patient Allergies Allergy/AdvReac Type Severity Reaction Status Date / Time Penicillins Allergy HIVES Verified 07/09/18 10:52 Home Medications: Home Medication List Medication Instructions Recorded Confirmed Last Taken Type Furosemide 20 mg PO DAILY 07/08/18 11/08/19 07/09/18 06:00 History Tamsulosin HCl 0.4 mg PO DAILY 07/08/18 11/08/19 07/09/18 06:00 History Iron Carbonyl/Vit C/Vit B12/FA 1 ea PO DAILY #30 tab 07/13/18 11/08/19 Unknown Rx [Icar-C Plus] Losartan Potassium 1 tab PO DAILY 11/08/19 11/08/19 Unknown History Metoprolol Tartrate 1 tab PO BID 11/08/19 11/08/19 Unknown History Acetaminophen [Tylenol] 650 mg PO Q6H PRN PRN tab 11/14/19 Unknown Rx Calcitonin [Fortical] 1 spray INTRANASAL DAILY bottle 11/14/19 Unknown Rx Calcium Citrate/Vitamin D 1 ea PO DAILY tab 11/14/19 Unknown Rx [Citracal + D] Polyethylene Glycol 3350 [Miralax] 17 gm PO DAILY powder, packet 11/14/19 Unknown Rx - History of Present Illness -Gen Adult Nature of Presenting Problems: 89 YO MALE PRESENTS FROM HIS HOME PER IMS IN DISTRESS WITH PAIN. BIALT SCROTAL PAIN AND RASH SCROTUM X > 2 DAYS. LOW LEFT FLANK PAIN WHICH HE ATTRIBUTES TO RECENT LUMBAR DISC DISEASE. INTERMITTENT SOB. ABLE TO ANSWER IN FULL SENTENCES. NO FEVER OR CP. RECENT DIARRHEA CAUSING PAIN AND CONTRIBUTING TO RASH SCROTUMS. BROUGHT NO MEDICATIONS TO ER. Review of Systems - Adult - REVIEW OF SYSTEMS - ADULT Constitutional: reports: no symptoms reported. denies: chills, fever Eyes: reports: no symptoms reported Ears, Nose, Mouth & Throat: reports: no symptoms reported Cardiovascular: reports: no symptoms reported. denies: chest pain, edema Respiratory: reports: no symptoms reported. denies: cough Gastrointestinal: reports: see HPI, diarrhea Genitourinary: reports: see HPI Musculoskeletal: reports: no symptoms reported Integumentary: reports: no symptoms reported Neurological: reports: no symptoms reported Psychiatric: reports: no symptoms reported Endocrine: reports: no symptoms reported Hematologic/Lymphatic: reports: no symptoms reported Allergic/Immunologic: reports: no symptoms reported All Other Systems: Reviewed and Negative Past History - Adult - PAST MEDICAL HISTORY-ADULT Review of Records: reports: Nursing Assessment Review, Medications Reviewed, Social history reviewed & non-contributory. Major Childhood Illnesses: reports: denies history Cardiovascular: reports: HTN Respiratory: reports: denies history Gastrointestinal: reports: denies history Obstetrical/Gynecological: reports: denies history Genitourinary: reports: denies history Musculoskeletal: reports: denies history Neurological: reports: denies history Endocrine/Immune: reports: denies history Other Conditions: reports: cataract/glaucoma - PRIOR SURGERIES/PROCEDURES Surgical/Procedure History: reports: reviewed, not pertinent, tonsillectomy, orthopedic (extremity) (bilateral knees), joint replacement (knee), other (cataract removal; prostate) - IMMUNIZATION STATUS Childhood Immunizations: See Nurse Assessment Flu Vaccine: See Nurse Assessment - FAMILY HISTORY Family History: reviewed, not pertinent Physical Exam-General - PHYSICAL EXAM-ADULT Initial Vital Signs Reviewed: Yes - CONSTITUTIONAL General Appearance: alert, mild distress - EYES Eyes: PERRL/EOMI - HEAD, EARS, NOSE, MOUTH & THROAT HENMT: normocephalic/atraumatic, moist mucous membranes - NECK Neck: full range of motion, supple - RESPIRATORY Respiratory: chest non-tender, lungs clear, normal breath sounds - CARDIOVASCULAR Cardiovascular: regular rate, rhythm, no edema, no JVD, no murmur - GASTROINTESTINAL (ABDOMEN) Abdominal Exam: normal bowel sounds, non tender, soft - GENITOURINARY Male Genitalia: scrotal swelling (RAW SCROTAL INFLAMATION BILATERAL SCROTUM BUT NOT THIGHS) - MUSCULOSKELETAL Back Exam: other (VERY TENDER LEFT PARALUMBAR SOFT TISSUES.) Extremity: no calf tenderness, normal capillary refill. 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 negative: facial droop, motor weakness, sensory deficit - PSYCHIATRIC Psych/Mental Status: normal mood/affect, normal thought content, normal thought process, oriented x 3, disheveled Progress - PLAN OF CARE/RESULTS Progress/Plan/Lab Results: Orders Category Date Time Status Cardiac Monitoring DIRECTED Care 01/07/20 06:27 Ordered Saline Loc NOW Care 01/07/20 06:27 Ordered CHEST-PORTABLE [RAD] Stat Exams 01/07/20 06:29 Ordered CBC WITH ELECTRONIC DIFF [HEME] Stat Lab 01/07/20 06:28 Uncollected COMPREHENSIVE METABOLIC PANEL [CHEM] Stat Lab 01/07/20 06:28 Ordered INFLUENZA SCREEN A/B Stat Lab 01/07/20 06:28 Uncollected PRO B-NATRIURETIC PEPTIDE Stat Lab 01/07/20 06:28 Uncollected TROPONIN T HIGH SENSITIVITY Stat Lab 01/07/20 06:28 Uncollected URINALYSIS W/POSS RFLX CULT [URINALYSIS] Stat Lab 01/07/20 06:29 Uncollected URINE DRUG SCREEN Stat Lab 01/07/20 06:29 Uncollected Morphine Med 01/07/20 06:29 Once 4 mg IV NOW ONE Ondansetron [Zofran] Med 01/07/20 06:29 Once 4 mg IV NOW ONE EKG [EKG] Stat Ther 01/07/20 06:28 Ordered Result Diagrams: 01/07/20 06:55 01/07/20 06:55 - REASSESSMENT Reassessment #1 Status: other (CELLULITIS TO GROIN. WORSENING RENAL FAILURE. SEPSIS WITH HYPOTENSION. ELEVATED TROPONIN ALL DISCUSSED WITH DR BLUE) Reassessment Comment: BP IMPROVING WITH IV FLUIDS. DISCUSSED WITH DR BLUE WILL ADMIT ICU. - EKG 1 Time of EKG reading by physician:: 07:55 EKG Read and Signed by:: Wilfredo Kwan EKG Interpretation (*Must complete 3 of following elements*): Abnormal Rate: 104 Rhythm: IRREG. AFIB QRS: normal ST Wave: non-specific ST changes (AFIB ( CHRONIC ). RATE 104. NON SPECIFIC STT CHANGES) - CHANGE OF SHIFT REPORT (ED Provider) 1 Report Given and Care Transferred to:: DR KWAN Time of Transfer: 07:00 Departure - Departure Date of Disposition Decision: 01/07/20 Time of Disposition Decision: 08:42 DIAGNOSIS: Sepsis associated hypotension, Cellulitis, Acute renal failure (ARF) Disposition: ADMITTED INPATIENT 09 Certified Medical Emergency: Emergent Condition: Fair Referrals and Follow-Ups: Luna Blue MD [Primary Care Provider] - - Critical Care Note This patient required my direct & personal management of CC.: Yes Total Time (mins): 50 Critical Care Statement: This patient required my direct personal management to treat or rule out processes, the absence of which, could potentiallly result in sudden, clinically significant life or limb threatening deterioration. Attestation - Physician/ ROMAN Attestation Patient care was provided by Advanced Practice Provider:: No The physician spent face to face time with patient:: Yes Advanced Practice Provider documentation review:: Supervising physician onsite and consulted in the evaluation and care of this patient. The physician did have a face to face encounter with the patient.
--- NOTE | 2020-01-07 06:58 | Diag Imaging Result Doc PS360 ---
EXAM: CHEST-PORTABLE HISTORY: BACK PAIN TECHNIQUE: Two views COMPARISON: 11/08/2019 FINDINGS: Poor inspiratory effort. The heart is mildly prominent. No effusions identified. No pulmonary edema. Severe arthritis to the shoulders. The right hemidiaphragm is elevated. IMPRESSION: Stable chest Electronically signed by Cristobal Ugarte 01/07/2020 6:55 AM
[2020-01-07 07:28] LABS: BASO# 0.01 X1000 (0.0-0.2); BASO% 0.1 % (0.0-0.8); EOS# 0.04 X1000 (0.0-0.7); EOS% 0.2 % (0.0-10.0); HEMATOCRIT 42.8 % (42.0-52.0); HEMOGLOBIN 14.3 g/dL (14.0-18.0); IMM GRAN% 1.1 % (0.0-0.5); LYMPH# 0.57 X1000 (1.2-3.4); LYMPH% 3.2 % (20.5-51.1); MCH 31.2 PG (27-31); MCHC 33.4 g/dL (33-37); MCV 93.4 FL (81-99); MONO# 1.03 X1000 (0.11-0.59); MONO% 5.8 % (1.7-9.3); MPV 9.9 FL (7.4-10.4); NEUT# 15.81 X1000 (1.4-6.5); NEUT% 89.6 % (42.2-75.2); PLT 257 X1000 (130-400); RBC 4.58 XMIL (4.7-6.1); RDW 14.9 % (11.5-14.5); WBC 17.66 X1000 (4.8-10.8)
--- NOTE | 2020-01-07 07:34 | Diag Imaging Result Doc PS360 ---
EXAM: CHEST-1 VIEW 01/07/2020 HISTORY: sepsis TECHNIQUE: AP portable semiupright at 0715 COMMENT: The inspiration is better than on 01/07/2020 at 0641. There may be some atelectasis in the left lower lobe. Otherwise there has been no significant change. IMPRESSION: Questionable left lower lobe atelectasis. Electronically signed by Philippe Arshad 01/07/2020 7:32 AM
[2020-01-07 07:39] LABS: ALB/GLOB RATIO 1.7; ALBUMIN 3.6 g/dL (3.5-5.0); CALCIUM 10.3 mg/dL (8.8-10.2); CREATININE 3.7 mg/dL (0.7-1.2); POTASSIUM 5.6 mmol/L (3.5-5.1); TOTAL BILIRUBIN 0.7 mg/dL (0.20-1.00); TOTAL PROTEIN 5.7 g/dL (6.3-8.3)
[2020-01-07] MEDS ORDERED: LR 1,000 ML IV ONE (07:45)
[2020-01-07] MEDS ORDERED: ROCEPHIN 1 GM in NS 50 ML IV ONE (07:46)
--- NOTE | 2020-01-07 07:47 | Diag Imaging Result Doc PS360 ---
EXAM: LUMBAR SPINE 2-VIEWS HISTORY: BACK PAIN TECHNIQUE: Two views COMPARISON: 11/10/2019 FINDINGS: There is collapse of the L1 vertebra. This is unchanged from the prior study. No new compression fracture. No subluxation. Prominent degenerative changes. Prominent atherosclerosis. IMPRESSION: Old L1 compression fracture Electronically signed by Cristobal Ugarte 01/07/2020 7:44 AM
[2020-01-07 07:49] LABS: INR 1.38; PROTIME 17.2 Seconds (11.0-16.0)
[2020-01-07] MEDS ORDERED: ASPIRIN PO ONE (07:55)
[2020-01-07] MEDS ORDERED: VANCOMYCIN 2,000 MG in NS 500 ML IV ONE (08:00)
[2020-01-07] MEDS ORDERED: VANCOMYCIN IV PER PHARMACY MISC SCH (08:00)
[2020-01-07] MEDS ORDERED: NS 2,700 ML IV ONE (08:04)
[2020-01-07] MEDS ORDERED: EPINEPHRINE 4 MG in NS 250 ML IV SCH (08:15)
[2020-01-07] MEDS ORDERED: PITRESSIN 40 UNIT in NS 100 ML IV SCH (08:15)
[2020-01-07] MEDS ORDERED: LEVOPHED 8 MG in D5 1/2 NS 250 ML IV SCH (08:15)
--- NOTE | 2020-01-07 08:21 | EKG Report ---
Test Performed on : 01/07/2020 07:54:09 AM Test Reason : BACK PAIN Blood Pressure : / mmHG Vent. Rate : 104 BPM Atrial Rate : 136 BPM P-R Int : 000 ms QRS Dur : 088 ms QT Int : 340 ms P-R-T Axes : 000 -45 128 degrees QTc Int : 447 ms Atrial fibrillation. with rapid ventricular response. with premature ventricular or aberrantly conduc katerine complexes. Left anterior fascicular block Cannot rule out Inferior infarct (cited on or before 08-NOV-2019) Possible Anterior infarct (cited on or before 08-NOV-2019) ST & T wave abnormality, consider lateral ischemia Abnormal ECG When compared with ECG of 13-NOV-2019 10:36, Significant changes have occurred Unconfirmed Result
[2020-01-07 08:24] LABS: BANDS 6 % (0-1); LYMPHS 2 % (21-51); MONO 4 % (1-9); SEGS 88 % (42-75)
[2020-01-07] MEDS ORDERED: DIFLUCAN 100 MG/NS 100 MG/50 ML IVPB IV ONE (08:39)
[2020-01-07] MEDS ORDERED: NS 1,000 ML IV SCH (08:45)
[2020-01-07 09:58] LABS: URINE SOURCE CLEAN CATCH
[2020-01-07 10:08] LABS: BILIRUBIN URINE NEGATIVE (NEGATIVE); BLOOD URINE LARGE (NEGATIVE); COLOR YELLOW; GLUCOSE URINE NEGATIVE (NEGATIVE); KETONE URINE TRACE mg/dL (NEGATIVE); LEUKOCYTES URINE NEGATIVE (NEGATIVE); NITRITE URINE NEGATIVE (NEGATIVE); PROTEIN URINE TRACE mg/dL (NEGATIVE); SP GRAVITY URINE 1.014; TURBIDITY URINE HAZY (CLEAR); UROBILINOGEN URINE NORMAL (NORMAL)
[2020-01-07 10:10] LABS: UR EPITHELIAL CELLS <10 /HPF (<10); URINE BACTERIA NEGATIVE /HPF; URINE WBC <10 /HPF (<10)
[2020-01-07 10:47] LABS: UR AMPHETAMINES QUAL NONE DETECTED (NONE DETECT); UR BARBITUATES QUAL NONE DETECTED (NONE DETECT); UR BENZODIAZEPIN QUAL NONE DETECTED (NONE DETECT); UR CANNABINOIDS QUAL NONE DETECTED (NONE DETECT); UR COCAINE QUAL NONE DETECTED (NONE DETECT); UR METHADONE QUAL NONE DETECTED (NONE DETECT); UR OPIATES QUAL NONE DETECTED (NONE DETECT); UR OXYCODONE QUAL NONE DETECTED (NONE DETECT); UR PCP QUAL NONE DETECTED (NONE DETECT)
[2020-01-07] MEDS ORDERED: DOBUTAMINE 250 MG/D5W 250 MG/250 ML IV.SOLN IV SCH (12:45)
[2020-01-07] MEDS: NS 1,000 ML IV SCH (13:00)
[2020-01-07] MEDS ORDERED: NS 250 ML ONE (13:17)
--- NOTE | 2020-01-07 14:24 | Diag Imaging Result Doc PS360 ---
EXAM: CHEST-PORTABLE HISTORY: PICC placement TECHNIQUE: Single view COMPARISON: 7:15 AM FINDINGS: The patient is rotated to the left. There is a left-sided PICC line on the current exam. Although the tip lies near the junction of the superior vena cava and right atrium, it is difficult to tell with the amount of rotation whether not this is truly in the correct positioning. Repeat film recommended. Electronically signed by Cristobal Ugarte 01/07/2020 2:22 PM
--- NOTE | 2020-01-07 15:54 | Diag Imaging Result Doc PS360 ---
EXAM: US RENAL 2 (RETROPER) COMPLETE 01/07/2020 HISTORY: elevated labs TECHNIQUE: Renal ultrasound COMMENT: The right kidney is 7.2 x 3.2 x 3.5 cm the left is 7.8 x 4.1 cm. The bladder is not distended and there is a Oliver catheter. There is no evidence of hydronephrosis. There are cysts bilaterally measuring up to five cm on the left and there is a hypoechoic nodule measuring 2.5 cm in the upper pole of the right kidney. Some of the cysts are septated. Compared with the previous examination of 11/24/2016, the nodule in the upper pole of the right kidney previously measured over 2.5 cm. IMPRESSION: Multiple renal cysts. Solid nodule or complex cyst in the upper pole of the right kidney, stable since 11/24/2016. Electronically signed by Philippe Arshad 01/07/2020 3:52 PM
[2020-01-07 16:28] LABS: BASO# 0.02 X1000 (0.0-0.2); BASO% 0.1 % (0.0-0.8); EOS# 0.05 X1000 (0.0-0.7); EOS% 0.3 % (0.0-10.0); HEMOGLOBIN 12.5 g/dL (14.0-18.0); IMM GRAN# 0.14 X1000 (0.0-0.04); IMM GRAN% 0.9 % (0.0-0.5); LYMPH# 0.64 X1000 (1.2-3.4); LYMPH% 4.1 % (20.5-51.1); MCH 31.6 PG (27-31); MCHC 32.1 g/dL (33-37); MCV 98.7 FL (81-99); MONO# 0.94 X1000 (0.11-0.59); MPV 9.9 FL (7.4-10.4); NEUT% 88.6 % (42.2-75.2); PLT 187 X1000 (130-400); RBC 3.95 XMIL (4.7-6.1); RDW 15.4 % (11.5-14.5); WBC 15.69 X1000 (4.8-10.8)
[2020-01-07 16:54] LABS: LYMPHS 6 % (21-51); MONO 4 % (1-9); SEGS 90 % (42-75)
[2020-01-07 17:27] LABS: POTASSIUM 5.2 mmol/L (3.5-5.1)
[2020-01-07 17:29] LABS: CALCIUM 8.5 mg/dL (8.8-10.2)
[2020-01-07] MEDS: ZOSYN 2.25 GM in NS 50 ML IV SCH ×2 (17:58→23:20)
[2020-01-07] MEDS: DOPAMINE 800 MG/D5W 800 MG/500 ML IV.SOLN IV SCH (18:02)
[2020-01-07] MEDS ORDERED: SODIUM CHLORIDE 0.9% INJ SCH (18:45)
[2020-01-07] MEDS ORDERED: NEXIUM IV SCH (18:45)
--- NOTE | 2020-01-07 19:55 | HISTORY AND PHYSICAL ---
CHIEF COMPLAINT: 1. Foul-smelling discharge around the groin area, perianal area. 2. Low blood pressure. 3. Altered mental status. HISTORY OF PRESENT ILLNESS: He is an 89-year-old white gentleman who was brought in by the family with above symptoms. He had extensive cellulitis with multiple ulcers and drainage noted, very grossly foul-smelling. The patient was hypotensive and acute kidney injury findings noted. I have seen the patient twice in the emergency room and in the ICU. His brother just came in, and white cell count is 16,000. He has cellulitis with impending sepsis. Admitted in ICU. He was started on IV fluids. Oliver was placed, and he is not making any urine. He was given 2.7 L of crystalloids followed by IV fluids with low dose of dopamine on vasopressors. Ultrasound showed no hydronephrosis and multiple benign cysts with complex cyst. IV access is problematic. PICC line was placed on the right side of the arm. Basically admitted to the hospital with cellulitis of the groin and with candidal infection. Wound care consult was obtained. 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 PAST SURGICAL HISTORY: Tonsillectomy, bilateral knee arthroplasty, bilateral cataract surgery, history of left fibula fracture, right heel fracture. ALLERGIES: Reported to penicillin. SOCIAL HISTORY: Single no children. Retired. Lives in [place] with his brother. No smoking. No alcohol. FAMILY HISTORY: Father of heart failure at 69. Mom of respiratory failure at 94. HEALTH MAINTENANCE: Flu vaccine 2019. Pneumococcal vaccine 13 was given in 2013. MEDICATIONS: Prior to the admissions, calcitonin nasal spray 1 spray in nostril, MiraLAX 17 g daily, Flomax 0.4 daily, Lasix 20 daily Icar C Plus 1 tablet daily, metoprolol 25 p.o. b.i.d., losartan 50 daily, calcium with vitamin D 1 tablet daily REVIEW OF SYSTEMS: Constitutional: Confused. HEENT: No headache. Vision problem in the left eye. Neck: No neck pain, no goiter. Cardiopulmonary: No chest pain, shortness of breath, PND, orthopnea. Gastrointestinal: No nausea, vomiting, abdominal pain. Dermatologic: Rash and discharge around the groin. The whole penis was inflamed. Musculoskeletal: No swelling of legs. Chronic back pain and osteoarthritic pains. Neurologic: No focal symptoms or weakness. PHYSICAL EXAMINATION: VITAL SIGNS: Temperature is 97 degrees, heart rate is normal. Blood pressure is 80/60. GENERAL: Elderly gentleman is obtunded, confused, atraumatic, normocephalic. No anemia. Dry mucous membranes. NECK: Supple. No lymphadenopathy. CHEST: Bilateral air entry. CARDIOVASCULAR: Heart sounds are regular. ABDOMEN: Belly is soft, obese, nontender. SKIN: Extensive purulent rash, cellulitis with drainage noted around the groin, perianal area, all over the penis and the scrotal area. No signs of gangrene noted. NEUROLOGICAL: No neurological deficits. INVESTIGATIONS: White cell count 15.69, hematocrit 39, platelets 187,000, PT 17 INR 1.38. Sodium 136, potassium 5.2, chloride 106, BUN 85, creatinine 3.0, calcium 8.5, and CK 43. ProBNP 5056. Urinalysis positive for infection. Urine toxic screen is negative. Chest x-ray: Cardiomegaly, nothing acute. X-ray of lumbar spine: Old L1 compression fracture. EKG atrial fibrillation. ASSESSMENT AND PLAN: 1. An 89-year-old white male with tenia cruris superimposed secondary infection with cellulitis, mostly bacterial with impending sepsis and kidney injury. Plan of care is hemodynamic support with IV fluids followed by low doses of vasopressor with dopamine. 2. Oliver catheter. 3. Renal ultrasound no hydronephrosis. 4. Tenia cruris on IV Diflucan. Wound care consult. The patient was given Vashe. 5. Constipation on MiraLAX. 6. Chronic back pain due to L1 compression fracture due to osteoporosis from hypogonadism. Continue calcium, vitamin D and calcitonin. 7. Chronic pericardial effusion, stable. 8. GI prophylaxis with IV Protonix. 9. Poor IV access. PICC line on the right side placed. 10. Secondary infection. IV vancomycin was given and currently started on Zosyn 2.25 IV q.6 and will closely monitor. Condition is critical. Admitted in ICU. LEVEL OF DOCUMENTATION: More than 65 minutes. cc: Reno Card MD MTDD
[2020-01-07] MEDS: PROTONIX IV SCH (20:24)
[2020-01-07] MEDS: SODIUM CHLORIDE 0.9% INJ SCH (20:24)
[2020-01-07 23:44] LABS: URINE SOURCE CATH
[2020-01-08 01:54] LABS: BILIRUBIN URINE NEGATIVE (NEGATIVE); BLOOD URINE SMALL (NEGATIVE); COLOR YELLOW; GLUCOSE URINE NEGATIVE (NEGATIVE); KETONE URINE NEGATIVE (NEGATIVE); LEUKOCYTES URINE NEGATIVE (NEGATIVE); NITRITE URINE NEGATIVE (NEGATIVE); PROTEIN URINE TRACE mg/dL (NEGATIVE); TURBIDITY URINE CLEAR (CLEAR); UROBILINOGEN URINE NORMAL (NORMAL)
[2020-01-08 01:56] LABS: UR EPITHELIAL CELLS <10 /HPF (<10); URINE BACTERIA NEGATIVE /HPF; URINE RBC <10 /HPF (<10); URINE WBC <10 /HPF (<10)
[2020-01-08] MEDS: NS 1,000 ML IV SCH ×2 (04:49→18:14)
[2020-01-08] MEDS: ZOSYN 2.25 GM in NS 50 ML IV SCH ×3 (05:14→18:14)
[2020-01-08 06:52] LABS: BASO# 0.01 X1000 (0.0-0.2); BASO% 0.1 % (0.0-0.8); EOS# 0.21 X1000 (0.0-0.7); EOS% 1.5 % (0.0-10.0); HEMATOCRIT 36.3 % (42.0-52.0); HEMOGLOBIN 11.9 g/dL (14.0-18.0); IMM GRAN# 0.14 X1000 (0.0-0.04); LYMPH# 0.79 X1000 (1.2-3.4); LYMPH% 5.6 % (20.5-51.1); MCH 31.3 PG (27-31); MCHC 32.8 g/dL (33-37); MCV 95.5 FL (81-99); MONO# 0.87 X1000 (0.11-0.59); MONO% 6.2 % (1.7-9.3); MPV 9.8 FL (7.4-10.4); NEUT# 11.99 X1000 (1.4-6.5); NEUT% 85.6 % (42.2-75.2); PLT 203 X1000 (130-400); RDW 15.2 % (11.5-14.5); WBC 14.01 X1000 (4.8-10.8)
[2020-01-08 07:19] LABS: CALCIUM 8.7 mg/dL (8.8-10.2); CREATININE 2.7 mg/dL (0.7-1.2); POTASSIUM 5.2 mmol/L (3.5-5.1)
[2020-01-08] MEDS ORDERED: DIFLUCAN 150 MG/NS 150 MG/75 ML IVPB IV SCH (08:30)
[2020-01-08] MEDS: DIFLUCAN 100 MG/NS 100 MG/50 ML IVPB IV SCH (08:49)
[2020-01-08] MEDS: FORTICAL NAS SCH (08:49)
[2020-01-08] MEDS: MIRALAX PO SCH (16:33)
[2020-01-08] MEDS: DOPAMINE 800 MG/D5W 800 MG/500 ML IV.SOLN IV SCH (18:15)
[2020-01-08] MEDS: PROTONIX IV SCH (20:46)
--- NOTE | 2020-01-08 21:26 | PROGRESS NOTE ---
DATE: 01/08/2020 SUBJECTIVE: The patient is a little better. I appreciated Naz consult. Currently bleeding with washcloth on the groin area. Hemodynamics stable. Low doses of dopamine noted. Passed the swallowing studies. Eating well. OBJECTIVE: Vital Signs: Temperature, he is afebrile. Hemodynamics are stable. Lungs: Bilateral air entry. Heart: Sounds are distant. Abdomen: Belly is soft, nontender. Extremities: Antithrombotic stockings noted in both legs. LABS: White cell count 14, hematocrit 36, platelets 203,000. Sodium 140, potassium 5.2, BUN 76, creatinine 2.7. He is making urine about 650 mL. ASSESSMENT AND PLAN: 1. Acute kidney injury due to prerenal azotemia, improving. Continue intravenous fluids 80 mL an hour and dopamine 2.5 mcg daily. 2. Slowly wean off dopamine. 3. Advance the diet. 4. Tenia cruris with secondary infection most likely Staphylococcus. Currently on intravenous Diflucan and Zosyn. 5. Deep vein thrombosis prophylaxis with antithrombotic stockings. Gastrointestinal prophylaxis with intravenous Protonix and MiraLAX for constipation. Follow up on the daily labs. 6. Poor intravenous access. PICC line on the right side. LEVEL OF DOCUMENTATION: 25 minutes. cc: Reno Card MD
[2020-01-08] MEDS: SODIUM CHLORIDE 0.9% INJ SCH (23:25)
[2020-01-09] MEDS: ZOSYN 2.25 GM in NS 50 ML IV SCH ×4 (00:31→17:53)
[2020-01-09 05:09] LABS: BASO# 0.02 X1000 (0.0-0.2); BASO% 0.2 % (0.0-0.8); EOS# 0.49 X1000 (0.0-0.7); HEMATOCRIT 33.3 % (42.0-52.0); HEMOGLOBIN 10.7 g/dL (14.0-18.0); IMM GRAN% 1.6 % (0.0-0.5); LYMPH# 0.55 X1000 (1.2-3.4); LYMPH% 4.4 % (20.5-51.1); MCH 31.1 PG (27-31); MCHC 32.1 g/dL (33-37); MCV 96.8 FL (81-99); MONO# 0.81 X1000 (0.11-0.59); MONO% 6.5 % (1.7-9.3); MPV 9.3 FL (7.4-10.4); NEUT# 10.33 X1000 (1.4-6.5); NEUT% 83.3 % (42.2-75.2); PLT 174 X1000 (130-400); RBC 3.44 XMIL (4.7-6.1); RDW 15.3 % (11.5-14.5)
[2020-01-09 05:25] LABS: CALCIUM 7.7 mg/dL (8.8-10.2); CREATININE 2.6 mg/dL (0.7-1.2); POTASSIUM 4.3 mmol/L (3.5-5.1)
--- NOTE | 2020-01-09 07:15 | Diag Imaging Result Doc PS360 ---
EXAM: CHEST-PORTABLE 01/09/2020 HISTORY: Placement confirmation for existing PICC line TECHNIQUE: AP portable at 0527 COMMENT: There is opacification of the retrocardiac left lower lobe which appears slightly worse than on 01/07/2020. The inspiration is less optimal however. The left PICC line tip is apparently in the left subclavian vein. IMPRESSION: Left lower lobe atelectasis versus pneumonia. Electronically signed by Philippe Arshad 01/09/2020 7:13 AM
[2020-01-09 07:51] LABS: INR 1.63; PROTIME 19.6 Seconds (11.0-16.0)
[2020-01-09] MEDS: DIFLUCAN 100 MG/NS 100 MG/50 ML IVPB IV SCH (08:11)
[2020-01-09] MEDS: FORTICAL NAS SCH (08:11)
[2020-01-09] MEDS: MIRALAX PO SCH (08:11)
[2020-01-09] MEDS ORDERED: NS 250 ML ONE (08:12)
--- NOTE | 2020-01-09 10:53 | Diag Imaging Result Doc PS360 ---
EXAM: CHEST-PORTABLE 01/09/2020 HISTORY: PICC Placement TECHNIQUE: AP portable upright at 1042 COMMENT: There is a left-sided PIC line with its tip in the superior vena cava. Compared to 01/09/2020 at 0527 there is slightly more opacity over the right base and there may be some clearing over the left. IMPRESSION: Worsening atelectasis or pneumonia in the right lower lobe. Electronically signed by Philippe Arshad 01/09/2020 10:50 AM
[2020-01-09] MEDS: NS 1,000 ML IV SCH ×2 (11:34→17:54)
[2020-01-09] MEDS: DOPAMINE 800 MG/D5W 800 MG/500 ML IV.SOLN IV SCH (18:24)
[2020-01-09] MEDS: SODIUM CHLORIDE 0.9% INJ SCH (20:45)
[2020-01-09] MEDS: TYLENOL PO PRN (20:45)
[2020-01-09] MEDS: PROTONIX IV SCH (20:45)
--- NOTE | 2020-01-09 21:23 | PROGRESS NOTE ---
DATE: 01/09/2020 SUBJECTIVE: The patient is in the ICU. Last night the nurses called. He pulled the PICC line out partially. He did not have an IV. Off dopamine, blood pressure was dropping. Making urine output. He passed the swallowing study. Eating well. Apparently the wound culture is gram- positive cocci. REVIEW OF SYSTEMS: None reported. PHYSICAL EXAMINATION: Vital Signs: He is afebrile. Hemodynamics are stable. General: Not in distress. Lungs: Decreased breath sounds. Heart: Sounds are regular. Abdomen: Belly is soft. : Oliver still placed. He has a groin infection that is slowly improving. INVESTIGATIONS: White cell count 12.4, hematocrit 33, platelet 174. SMA 7: Sodium 137, potassium 4.3, chloride 112, BUN 56, creatinine 2.6. PT 19, INR 1.6. ASSESSMENT AND PLAN: 1. Tinea cruris infected with gram-positive infection. Continue on cloth after-wash, daily basis. 2. Acute kidney injury. Continue IV fluids and dopamine as needed. 3. Decrease the white cell count. Continue on IV Zosyn. 4. Deep venous thrombosis prophylaxis with antithrombotic stockings. 5. Incentive spirometry. 6. Reassess the PICC line situation. We will keep him in the ICU. Continue present treatment, and will follow up. Currently stable. LEVEL OF DOCUMENTATION: Twenty-five minutes. cc: Reno Card MD
[2020-01-10] MEDS: ZOSYN 2.25 GM in NS 50 ML IV SCH ×5 (00:31→23:30)
[2020-01-10 06:12] LABS: BASO# 0.03 X1000 (0.0-0.2); BASO% 0.2 % (0.0-0.8); EOS# 0.43 X1000 (0.0-0.7); EOS% 3.5 % (0.0-10.0); HEMATOCRIT 35.1 % (42.0-52.0); HEMOGLOBIN 11.2 g/dL (14.0-18.0); IMM GRAN# 0.15 X1000 (0.0-0.04); IMM GRAN% 1.2 % (0.0-0.5); LYMPH# 0.64 X1000 (1.2-3.4); LYMPH% 5.3 % (20.5-51.1); MCH 31.1 PG (27-31); MCHC 31.9 g/dL (33-37); MCV 97.5 FL (81-99); MONO% 6.6 % (1.7-9.3); NEUT# 10.12 X1000 (1.4-6.5); NEUT% 83.2 % (42.2-75.2); PLT 186 X1000 (130-400); RDW 15.6 % (11.5-14.5); WBC 12.17 X1000 (4.8-10.8)
[2020-01-10] MEDS: NS 1,000 ML IV SCH ×2 (06:20→13:02)
[2020-01-10 07:05] LABS: CALCIUM 8.1 mg/dL (8.8-10.2); CREATININE 2.2 mg/dL (0.7-1.2); POTASSIUM 4.9 mmol/L (3.5-5.1)
[2020-01-10] MEDS ORDERED: VANCOMYCIN 1,500 MG in NS 250 ML IV SCH (09:00)
[2020-01-10] MEDS: DIFLUCAN 100 MG/NS 100 MG/50 ML IVPB IV SCH (10:08)
[2020-01-10] MEDS: FORTICAL NAS SCH (10:22)
[2020-01-10] MEDS: MIRALAX PO SCH (10:24)
--- NOTE | 2020-01-10 18:26 | PROGRESS NOTE ---
DATE: 01/10/2020 SUBJECTIVE: The patient continues to get better. PICC line was placed on the left side and making urine output 40 mL an hour and no other symptoms. PHYSICAL EXAMINATION: Temperature is 97 degrees, pulse 95, blood pressure is 112/89, 98% on room air.HEENT: Within normal limits. Lungs: Poor air entry. Heart: Distant heart sounds. Abdomen: Belly is soft, nontender. Skin: Rash is much improved. Oliver was placed. LABORATORY DATA: White cell count 12, hematocrit 35, platelets 186,000. Sodium 138, potassium 4.9, chloride 112, BUN 46, creatinine 2.2. ASSESSMENT AND PLAN: 1. Tinea cruris due to candidiasis. IV Diflucan. 2. Secondary infection with methicillin-resistant Staph epidermidis. Currently, he is doing Zosyn. Blood cultures were negative. Slowly, if there is no improvement will swap him to vancomycin. 3. Acute kidney injury due to prerenal azotemia. Continue IV fluids. Off dopamine. 4. PICC line on the left side. 5. Poor inspiratory effort, atelectasis in the left base. Incentive spirometry. 6. Out of the bed with physical therapy. 7. Chronic back pain due to L1 compression fracture, stable. We will transfer to the step-down unit from the ICU and will follow up over the weekend. LEVEL OF DOCUMENTATION: 35 minutes. cc: Reno Card MD
[2020-01-10] MEDS: PROTONIX IV SCH (20:15)
[2020-01-10] MEDS: SODIUM CHLORIDE 0.9% INJ SCH (20:15)
[2020-01-10] MEDS: TYLENOL PO PRN (20:30)
[2020-01-11] MEDS: NS 1,000 ML IV SCH ×2 (01:27→14:03)
[2020-01-11] MEDS: ZOSYN 2.25 GM in NS 50 ML IV SCH ×3 (05:26→17:46)
[2020-01-11] MEDS: DIFLUCAN 100 MG/NS 100 MG/50 ML IVPB IV SCH (10:07)
[2020-01-11] MEDS: FORTICAL NAS SCH (10:07)
[2020-01-11] MEDS: MIRALAX PO SCH (10:08)
[2020-01-11] MEDS ORDERED: CALMOSEPTINE OINTMENT TOP ONE (10:25)
[2020-01-11] MEDS: TYLENOL PO PRN (20:03)
[2020-01-11] MEDS: SODIUM CHLORIDE 0.9% INJ SCH (20:04)
[2020-01-11] MEDS: PROTONIX IV SCH (20:04)
[2020-01-12] MEDS: ZOSYN 2.25 GM in NS 50 ML IV SCH ×4 (00:11→17:29)
[2020-01-12] MEDS: NS 1,000 ML IV SCH ×2 (03:26→17:28)
[2020-01-12] MEDS: MIRALAX PO SCH (08:44)
[2020-01-12] MEDS: DIFLUCAN 100 MG/NS 100 MG/50 ML IVPB IV SCH (08:45)
[2020-01-12] MEDS: FORTICAL NAS SCH (08:45)
--- NOTE | 2020-01-12 14:11 | PROGRESS NOTE ---
DATE: 01/12/2020 Mr. Estrada shows some improvement. Lungs sound much better. We will repeat a chest x-ray in the morning, and continue the current management. His blood pressure was 140/95. General condition is stable. -8 cc: MD Reno Parsons MD
[2020-01-12] MEDS: TYLENOL PO PRN (19:47)
[2020-01-12] MEDS: PROTONIX IV SCH (20:48)
[2020-01-12] MEDS: SODIUM CHLORIDE 0.9% INJ SCH (20:48)
[2020-01-13] MEDS: ZOSYN 2.25 GM in NS 50 ML IV SCH ×4 (00:02→18:07)
--- NOTE | 2020-01-13 04:26 | PROGRESS NOTE ---
DATE: 01/11/2020 SUBJECTIVE: Mr. Estrada is recovering from pneumonia and atelectasis involving the right lower lobe. He is on IV piperacillin and he had some cellulitis in the groin, which is improving. LABORATORY DATA: White count was 12.17, hemoglobin to 11.2, hematocrit 35.1 today. BUN is 46, creatinine is 2.2. Electrolytes normal . CONDITION: Stable. ASSESSMENT/PLAN: We will continue with the current management on him. -7 cc: MD Reno Parsons MD
[2020-01-13] MEDS: NS 1,000 ML IV SCH ×2 (06:06→09:44)
[2020-01-13] MEDS: MIRALAX PO SCH (08:48)
[2020-01-13] MEDS: CENTRUM SILVER PO SCH (09:00)
--- NOTE | 2020-01-13 09:15 | Diag Imaging Result Doc PS360 ---
EXAM: CHEST-2 VIEWS INDICATION: pneumonia follow up TECHNIQUE: 2 views COMPARISON: 01/09/2020 FINDINGS: The left PICC line appears to have been retracted somewhat, possibly now within the brachiocephalic vein. Dense opacity at the left lung bases unchanged indicating atelectasis and/or pneumonia. There is also likely a stable effusion on the left. No new consolidation is appreciated. Cardiac silhouette is stable. IMPRESSION: Apparent retraction of the PICC line as described. Stable chest, otherwise. Electronically signed by Desmond Burr 01/13/2020 9:13 AM
[2020-01-13] MEDS: DIFLUCAN 100 MG/NS 100 MG/50 ML IVPB IV SCH (09:44)
[2020-01-13] MEDS: FORTICAL NAS SCH (09:44)
[2020-01-13 09:55] LABS: BASO# 0.04 X1000 (0.0-0.2); BASO% 0.4 % (0.0-0.8); EOS# 0.55 X1000 (0.0-0.7); EOS% 4.8 % (0.0-10.0); HEMATOCRIT 36.4 % (42.0-52.0); HEMOGLOBIN 11.7 g/dL (14.0-18.0); IMM GRAN% 0.9 % (0.0-0.5); MCH 31.2 PG (27-31); MCHC 32.1 g/dL (33-37); MCV 97.1 FL (81-99); MONO% 6.2 % (1.7-9.3); MPV 9.2 FL (7.4-10.4); NEUT# 9.16 X1000 (1.4-6.5); NEUT% 80.7 % (42.2-75.2); PLT 193 X1000 (130-400); RBC 3.75 XMIL (4.7-6.1); RDW 16.5 % (11.5-14.5); WBC 11.35 X1000 (4.8-10.8)
[2020-01-13 10:37] LABS: ALB/GLOB RATIO 1.2; ALBUMIN 2.7 g/dL (3.5-5.0); CALCIUM 8.8 mg/dL (8.8-10.2); CREATININE 1.8 mg/dL (0.7-1.2); POTASSIUM 3.9 mmol/L (3.5-5.1); TOTAL BILIRUBIN 0.31 mg/dL (0.20-1.00); TOTAL PROTEIN 4.9 g/dL (6.3-8.3)
[2020-01-13] MEDS: ICAR-C PLUS PO SCH (10:44)
[2020-01-13] MEDS ORDERED: ELIQUIS PO ONE (11:22)
[2020-01-13] MEDS: PROTONIX IV SCH (20:01)
[2020-01-13] MEDS: ELIQUIS PO SCH (20:01)
[2020-01-13] MEDS: SODIUM CHLORIDE 0.9% INJ SCH (20:01)
[2020-01-13] MEDS: TYLENOL PO PRN (20:01)
--- NOTE | 2020-01-13 22:00 | PROGRESS NOTE ---
DATE: 01/13/2020 SUBJECTIVE: This morning patient went for chest x-ray. Nurses reported left arm swelling from the PICC line, and I did discontinue the PICC line. Venous Doppler positive for acute DVT. He is little bit coughing. He is bedridden, and the rash and the infection is much better in the groin. He still has a Oliver catheter. OBJECTIVE: Vital signs: Temperature is 97.5 degrees, pulse is 86, blood pressure is stable. Respiratory: Poor air entry. Cardiovascular: Heart sounds are regular. Abdomen: Belly is soft, obese, nontender. Good bowel sounds. Skin: Rash is much improved in the groin. Neurologic: No obvious deficits. INVESTIGATIONS: White cell count 11, hematocrit 36, platelets 193,000. Sodium 139, potassium 3.9, BUN 21, creatinine 1.8. Albumin levels 2.7. ASSESSMENT AND PLAN: 1. Tenia cruris. IV Diflucan. 2. Methicillin-resistant Staphylococcus aureus infection, currently on IV Zosyn. 3. Atelectasis and incentive spirometry in the left lower lobe. 4. Deep venous thrombosis in the left upper extremity due to peripherally inserted central catheter line, discontinued and started on Eliquis 5 mg p.o. b.i.d. 5. Constipation on MiraLAX. 6. Acute kidney injury with chronic renal failure, improving. Decrease IV fluids to 50 mL/h. 7. L1 compression fracture on calcitonin spray. LEVEL OF DOCUMENTATION: 35 minutes. cc: Reno Card MD
[2020-01-14] MEDS: NS 1,000 ML IV SCH ×2 (00:50→04:19)
[2020-01-14] MEDS: ZOSYN 2.25 GM in NS 50 ML IV SCH ×5 (00:50→23:54)
[2020-01-14] MEDS: ICAR-C PLUS PO SCH (08:29)
[2020-01-14] MEDS: FORTICAL NAS SCH (08:29)
[2020-01-14] MEDS: DIFLUCAN 100 MG/NS 100 MG/50 ML IVPB IV SCH (08:29)
[2020-01-14] MEDS: ELIQUIS PO SCH ×2 (08:29→21:31)
[2020-01-14] MEDS: MIRALAX PO SCH (08:29)
--- NOTE | 2020-01-14 19:27 | Extremity Venous Study ---
PROCEDURE NAME: Venous U/S Left Arm - 01/13/2020 REFERRING PHYSICIAN: Dr. Card. An 89-year-old male. THIRD RAIL INSTALLER: Rylie Lizama RVT. INDICATIONS: Pain and edema involving his left upper extremity. The patient has had a PICC line in his left upper extremity, but it was removed today. Rule out deep venous thrombosis. FINDINGS: There was an acute deep venous thrombosis involving the left subclavian and axillary veins. This acute thrombosis extends into the left basilic vein in the proximal to mid left upper arm. The cephalic vein is compressible. Brachial veins were compressible. The veins in the antecubital fossa and left forearm are all compressible. INTERPRETATION: Acute deep venous thrombosis involving the left subclavian and axillary veins and extending into the left basilic vein to the mid left arm, status post PICC removal. cc: MD Reno Arreola MD
[2020-01-14] MEDS: PROTONIX IV SCH (21:31)
[2020-01-14] MEDS: SODIUM CHLORIDE 0.9% INJ SCH (21:31)
[2020-01-14] MEDS: TYLENOL PO PRN (21:35)
--- NOTE | 2020-01-14 22:01 | PROGRESS NOTE ---
DATE: 01/14/2020 SUBJECTIVE: The patient has trouble getting IV access and he is slowly getting out of the bed, encouraged to use his spirometry. OBJECTIVE: Temperature is 97 degrees, pulse 86, vital signs are stable. HEENT exam within normal limits. Poor air entry. Distant heart sounds. Belly is soft, nontender. Left arm is swollen. LABORATORY DATA: White cell count 11.3, hematocrit 36, platelet count was 193,000. BUN 21, creatinine 1.8. ASSESSMENT AND PLAN: 1. Tinea cruris. We will change to Diflucan 100 daily. 2. Left leg deep venous thrombosis due to peripherally inserted central catheter line. Started on Eliquis 5 mg p.o. b.i.d. 3. Gastrointestinal prophylaxis with intravenous Protonix. 4. Poor intravenous access. We will get an internal jugular. 5. Methicillin-resistant Staphylococcus epidermidis infection is better. We will change the antibiotics, Bactrim. The methicillin-resistant Staphylococcus epidermidis is resistant to Levaquin and tetracycline, but the groin looks fine. We will also use topical cream with Lotrimin. 6. Out of the bed with physical therapy. Level of documentation is 25 minutes. cc: Reno Card MD
[2020-01-15] MEDS: ZOSYN 2.25 GM in NS 50 ML IV SCH (05:23)
[2020-01-15 05:51] LABS: ALLEN TEST YES; BE -10.6 mmoll (-3.0-3.0); BLOOD TYPE ARTERIAL; HCO3-(ACT) 16.7 mmoll (20.0-26.0); MODALITY CANNULA; PCO2(98.6) 28 mmHg (35-45); PO2(98.6) 133 mmHg (60-100); SAMPLE BLOOD; pH(98.6) 7.31 (7.35-7.45)
[2020-01-15 06:15] LABS: HEMATOCRIT 21.9 % (42.0-52.0); MCH 32.3 PG (27-31); MCV 100.9 FL (81-99); MPV 9.8 FL (7.4-10.4); RBC 2.17 XMIL (4.7-6.1); RDW 16.5 % (11.5-14.5); WBC 17.57 X1000 (4.8-10.8)
--- NOTE | 2020-01-15 07:24 | Diag Imaging Result Doc PS360 ---
EXAM: CHEST-PORTABLE HISTORY: SOB TECHNIQUE: Single view single view COMPARISON: 01/13/2020 FINDINGS: Poor inspiratory effort. The patient is rotated to the left. Heart is mildly prominent. There are infiltrates and atelectasis in the left lower lobe with a small left effusion. No pulmonary edema. IMPRESSION: Stable chest Electronically signed by Cristobal Ugarte 01/15/2020 7:22 AM
[2020-01-15] MEDS: TYLENOL PO PRN (07:33)
[2020-01-15] MEDS ORDERED: DILAUDID IV PRN (07:34)
[2020-01-15] MEDS ORDERED: G.I. COCKTAIL PO ONE (07:34)
[2020-01-15] MEDS: PROTONIX IV SCH ×3 (07:56→20:32)
[2020-01-15] MEDS: FLAGYL 500 MG/NS 500 MG/100 ML IVPB IV SCH ×2 (07:56→15:51)
[2020-01-15] MEDS: DIFLUCAN PO SCH ×2 (07:56→09:27)
[2020-01-15] MEDS: ICAR-C PLUS PO SCH ×2 (07:57→09:28)
[2020-01-15] MEDS ORDERED: NS 500 ML ONE ×2 (08:21→19:15)
[2020-01-15] MEDS: ELIQUIS PO SCH (09:27)
[2020-01-15] MEDS: FORTICAL NAS SCH (09:28)
[2020-01-15] MEDS: MIRALAX PO SCH (09:28)
[2020-01-15] MEDS ORDERED: NS 500 ML IV ONE (11:29)
[2020-01-15 12:35] LABS: HEMATOCRIT 21.6 % (42.0-52.0); HEMOGLOBIN 6.7 g/dL (14.0-18.0); MCH 30.7 PG (27-31); MCV 99.1 FL (81-99); MPV 9.6 FL (7.4-10.4); RBC 2.18 XMIL (4.7-6.1); RDW 16.6 % (11.5-14.5); WBC 19.95 X1000 (4.8-10.8)
--- NOTE | 2020-01-15 12:39 | GASTROENTEROLOGY CONSULTATION ---
DATE: 01/15/2020 REASON FOR CONSULT: GI bleed. HISTORY OF PRESENT ILLNESS: Mr. Estrada is an 89-year-old, male. The patient has been in the hospital since 01/07/2020. He came into the hospital with complaints of foul-smelling discharge around his groin area and perineal area. The patient also had low blood pressure and altered mental status. He was brought into the emergency room by his brother. The patient was in the ICU and was placed on IV fluids. The patient's chest x-ray on admission had shown stable chest. A lumbar spine x-ray was done which showed an old L1 compression fracture. Renal ultrasound showed multiple renal cysts, solid nodule or complex cyst in the upper pole of the right kidney, stable since 11/24/2016. An extremity venous study was done and it showed that he had acute DVT involving the left subclavian and axillary vein and extending into the left basilar vein to the mid left arm status post PICC removal. The patient's chest x-ray yesterday showed he had a stable chest. The patient is currently hypotensive. He is lethargic. I was unable to gather any major information from the patient. History gathered from the nurse and from the medical records. The patient's hemoglobin and hematocrit today are 7.0 and 21.9. The patient has been having dark, tarry stools since yesterday onwards. 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 PAST SURGICAL HISTORY: A tonsillectomy, bilateral knee arthroplasty, bilateral cataract surgery, left fibular fracture, right heel fracture, right rotator cuff repair. ALLERGIES: Penicillin. SOCIAL HISTORY: The patient is single. He has denied smoking, drinking alcohol, or illicit drugs. FAMILY HISTORY: Positive for heart disease and respiratory failure. HOME MEDICATIONS: Iron tablet, Icar Plus 1 tablet daily, calcitonin 1 spray intranasal daily, MiraLAX 17 g p.o. daily, Tylenol 650 mg every 6 hours as needed. REVIEW OF SYSTEMS: As per HPI. Otherwise, 12 point review of systems is negative. PHYSICAL EXAMINATION: Vital Signs: Temperature 98.6 degrees, pulse 113, respirations 32, blood pressure 68/47, oxygen saturation 95% on room air. The patient's weight is 199 pounds. BMI is 29.4 kg/m2. General: He is alert, oriented x2, and in no acute distress. HEENT: Pale conjunctivae. No icterus. PERRL. Neck: Supple. Lungs: Diminished breath sounds heard in the anterior fritz. Cardiovascular: Patient is tachycardic and tachypneic. Abdomen: Soft, obese, nontender. Hypoactive bowel sounds heard in all 4 portions. The patient does have some redness in his groin area and in the abdominal fold. Extremities: No clubbing, no cyanosis. Generalized edema in the lower extremities. LABORATORY DATA: WBCs are 17.57, RBCs 2.17, hemoglobin is 7.0, hematocrit is 21.9, platelet count is 165,000. Sodium 139, potassium 3.9, chloride 111, carbon dioxide 18, anion gap 10, BUN 21, creatinine is 1.8, glucose 118, calcium is 8.8. Total bilirubin is 0.31, AST is 21, ALT is 15, alkaline phosphatase is 79, albumin is 2.7. MICROBIOLOGY: The patient's stool for occult blood was positive. The patient's Clostridium difficile toxin and Clostridium difficile antigen are negative. Stool for WBCs was moderate. The patient urine cultures have shown gram-positive cocci and the groin culture has shown Staphylococcus epidermidis. IMAGING: Chest x-ray today showed stable chest. IMPRESSION AND PLAN: - Melena - Hypovolemic hypotension - Hypoxic respiratory failure - Pneumonia - Afib - DVT - DELANO - Altered mental status PLAN: Mr. Estrada is an 89-year-old, male who is resting in bed and he is lethargic. He has a history of chronic renal failure and atrial fibrillation. GI has been consulted for his GI bleed. The patient's hemoglobin and hematocrit today are 7.0 and 21.9. The patient has orders to transfuse 1 unit of blood. The patient is also hypotensive. He is receiving a bolus of IV fluids, normal saline. We plan to do an EGD tomorrow to find out the cause of his bleeding. Discussed the risks, benefits, and alternatives of the procedure to the patient. The patient is currently on PPIs twice a day. The patient is also on antibiotic, Flagyl. He is on a bowel regimen, MiraLAX 17 g p.o. daily and on iron tablets daily. We will continue to monitor the patient. Further plan of care will be based on the EGD findings. This plan was discussed with Dr. Nelson. Thank you for your consult. Please call us for any further questions or concerns. Dictated by ZARA Baeza for Lai Nelson MD cc: Reno Card MD Physician Attestation I have seen and examined the patient. I have discussed and reviewed the note by Nithya ZUÑIGA and agree with findings and plan as documented. In brief, Mr. Estrada is a 89 year old man with Afib and recent diagnosis of DVT on Eliquis who presents with acute upper GI bleed with hypotension. Patient was started on PPI IV BID. I have ordered NS 500cc bolus to maintain MAPs >=60 until patient is able to receive pRBCs and discussed with Dr. Card possible higher level of care given hypoxia and hypotension. The patient and family have decided on DNR status and no aggressive measures. Will transfuse for goal hgb 7- 8. Holding blood thinners and keeping NPO. He will likely need EGD on once stablizes if family agrees. MTDD
[2020-01-15 15:24] LABS: HEMATOCRIT 25.4 % (42.0-52.0); HEMOGLOBIN 7.8 g/dL (14.0-18.0)
[2020-01-15] MEDS: SODIUM CHLORIDE 0.9% INJ SCH (20:33)
--- NOTE | 2020-01-15 21:47 | PROGRESS NOTE ---
DATE: 01/15/2020 SUBJECTIVE: This is a level 3 documentation in the step-down. I was [employer] consultant last night. I had several phone calls from the nurses in the nanny caregiver that he started having diarrhea and black stools and this morning when I arrived, the patient has been crashing. Blood pressure was low. Very pale. Melanotic stool, very tachycardic and he is in a lot of pain in the epigastric area. I spent about more than 35 minutes and patient was seen in the morning and in the evening. I tried to call the only caregiver, his brother, this morning, and not able to get through his telephone line. Apparently, he came back in the afternoon. I spoke to him on the phone. The patient is agree for DNR. REVIEW OF SYSTEMS: Upper abdominal pain, diarrhea. OBJECTIVE: Vital signs: On examination, his temp is 97 degrees, blood pressure is low, tachycardic, very pale and increased work of breathing. Heart: Distant heart sounds. Abdomen: Belly is soft. I did not see any signs of peritonitis. Heme-positive stools. Extremities: Left arm is edematous. LABS: This morning, white cell count 19.95, hematocrit 25, platelets 189,000. ABG, pH is 7.31, pCO2 28, PO2 133. Chest x-ray was reviewed. Poor inspiratory film. ASSESSMENT AND PLAN: 1. Left upper extremity deep vein thrombosis from the peripherally inserted central catheter line. 2. Tenia cruris. 3. Methicillin-Resistant Staphylococcus epidermidis infection. 4. Diarrhea heme-positive stool. Suspicious upper gastrointestinal bleeding. 5. Chronic systolic heart failure. 6. L1 compression fracture. 7. Deconditioning. PLAN OF CARE: 1. Discontinue Eliquis. 2. Dr. Nelson consult. 3. Hemodynamic support with blood transfusion 2 units to maintain the hemodynamics and check the CBC, SMA 7 in the morning. 4. Poor IV access. He has a small external jugular vein on the right side. It is problematic. Consider central line. 5. I spoke to the patient and he agrees for living will Do Not Resuscitate. LEVEL OF DOCUMENTATION: 35 minutes. cc: Reno Card MD
[2020-01-15 23:32] LABS: ALLEN TEST YES; BLOOD TYPE ARTERIAL; HCO3-(ACT) 16.4 mmoll (20.0-26.0); METHB 1.2 % (0.0-1.5); MODALITY VENTIMASK; O2(CT) 13.3 mL/dL (15.0-23.0); O2HB 97.1 % (95.0-99.0); PCO2(98.6) 30 mmHg (35-45); PO2(98.6) 151 mmHg (60-100); SAMPLE BLOOD; SAO2 100.1 % (95.0-100.0); THB 9.5 g/dL (11.5-17.4); pH(98.6) 7.29 (7.35-7.45)
[2020-01-16] MEDS: FLAGYL 500 MG/NS 500 MG/100 ML IVPB IV SCH ×3 (00:48→16:19)
[2020-01-16 06:51] LABS: BASO# 0.11 X1000 (0.0-0.2); BASO% 0.5 % (0.0-0.8); EOS# 0.38 X1000 (0.0-0.7); EOS% 1.6 % (0.0-10.0); HEMATOCRIT 28.2 % (42.0-52.0); IMM GRAN# 0.11 X1000 (0.0-0.04); IMM GRAN% 0.5 % (0.0-0.5); LYMPH# 1.57 X1000 (1.2-3.4); LYMPH% 6.8 % (20.5-51.1); MCH 31.6 PG (27-31); MCHC 31.9 g/dL (33-37); MCV 98.9 FL (81-99); MONO# 1.38 X1000 (0.11-0.59); MONO% 5.9 % (1.7-9.3); NEUT# 19.67 X1000 (1.4-6.5); NEUT% 84.7 % (42.2-75.2); PLT 162 X1000 (130-400); RBC 2.85 XMIL (4.7-6.1); RDW 16.6 % (11.5-14.5); WBC 23.22 X1000 (4.8-10.8)
[2020-01-16 07:21] LABS: ALB/GLOB RATIO 1.1; ALBUMIN 2.2 g/dL (3.5-5.0); CALCIUM 8.9 mg/dL (8.8-10.2); CREATININE 1.8 mg/dL (0.7-1.2); POTASSIUM 4.8 mmol/L (3.5-5.1); TOTAL BILIRUBIN 0.4 mg/dL (0.20-1.00); TOTAL PROTEIN 4.2 g/dL (6.3-8.3)
[2020-01-16 07:22] LABS: LYMPHS 4 % (21-51); SEGS 92 % (42-75)
[2020-01-16] MEDS: PROTONIX IV SCH ×3 (07:55→21:28)
[2020-01-16] MEDS: ICAR-C PLUS PO SCH (08:13)
[2020-01-16] MEDS: DIFLUCAN PO SCH (08:13)
[2020-01-16] MEDS: FORTICAL NAS SCH (08:13)
[2020-01-16] MEDS: MIRALAX PO SCH (08:13)
[2020-01-16] MEDS ORDERED: DIPRIVAN 1% ONE (09:21)
[2020-01-16] MEDS ORDERED: XYLOCAINE-MPF 2% ONE (09:31)
--- NOTE | 2020-01-16 10:13 | ENDOSCOPY OPERATIVE NOTE ---
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 On eliquis -last dose 01-15-2020. PROCEDURE PERFORMED: EGD, diagnostic MEDICATIONS: Per Anesthesia ESTIMATED BLOOD LOSS: None CONSENT: The patient understands the risks and benefits of the procedure and understands that these r isks include, but are not limited to: sedation, allergic reaction, infection, perforation and/or bleeding. Alternative means of evaluation and treatment include, among others: physical exam, x-rays, and/or surgical intervention. The patient elects to proceed with this endoscopic procedure. DESCRIPTION OF PROCEDURE: During pre-op preparation period all mechanical and medical equipment was c hecked for proper function. Hand hygiene and appropriate measures for infection prevention was taken. After the risks, benefits and alternatives of the procedure were thoroughly explained, Informed consent was verified, confirmed and timeout was successfully executed by the treatment team. The patient was anesthetized with topical anesthesia and the [id number] ([id number]) endoscope was introduced through the mouth and advanced to the second portion of the duoden um. Retroflexion was performed in the stomach and revealed no abnormalities. The gastroscope was then slowly withdraw n and removed. The patient's toleration of the procedure was good. ESOPHAGUS: Zline was noted at 46 cms approximately. The mucosa of the esophagus appeared normal. STOMACH: A single non-bleeding ulcer ranging between 5-9mm in size was found at the pylorus. Modera te erosive gastritis (inflammation) was found in the gastric body and gastric antrum. DUODENUM: Mild duodenal inflammation was found in the duodenal bulb and 1st part duodenum. The duod enal mucosa showed no abnormalities in the 2nd part of the duodenum. ADVERSE EVENTS: There were no complications. IMPRESSIONS: 1. Zline was noted at 46 cms approximately 2. The mucosa of the esophagus appeared normal 3. Single ulcer ranging between 5-9mm in size was found at the pylorus 4. Erosive gastritis (inflammation) was found in the gastric body and gastric antrum 5. Duodenal inflammation was found in the duodenal bulb and 1st part duodenum 6. The duodenal mucosa showed no abnormalities in the 2nd part of the duodenum RECOMMENDATIONS: 1. Start PPI BID for 90 days Start Carafate 1g every 6 hours for 6 weeks Start Iron C BID and MVI QD for 90 days Avoid NSAIDs Repeat EGD in 3 months -based on clinical course. RTC 3 weeks Sign off and please call us with any questions. 2. Begin an anti-reflux lifestyle: avoid acidic foods and drinks (like coffee and soda), do not lie down three hours after eating, elevate the head of your bed 6 to 9 inches, stop smokiing and reduce weight if needed. REPEAT EXAM: Fabricio Connolly MD eSigned: Fabricio Connolly MD 01/16/2020 10:12 AM CC: CPT CODES: 25965 Upper gastrointestinal endoscopy including esophagus, stomach, and either the du odenum and/or jejunum as appropriate; diagnostic, with or without collection of specimen(s) by brushing or washing (separate procedure) ICD CODES: The ICD and CPT codes recommended by this software are interpretations from the data that the [facility] staff has captured with the software. The verification of the translation of this report to the ICD and CPT co salty and modifiers is the sole responsibility of the health care institution and practicing physician where this report was generated. [employer] will not be held responsible for the validity of the ICD and CPT codes i ncluded on this report. A assumes no liability for data contained or not contained herein. CPT is a registered tra demark of the [employer]. PATIENT NAME: Cirilo Estrada MR#: [id number]
[2020-01-16] MEDS ORDERED: ICAR-C PO SCH (11:45)
[2020-01-16] MEDS: CARAFATE PO SCH ×2 (16:19)
--- NOTE | 2020-01-16 20:28 | PROGRESS NOTE ---
DATE: 01/16/2020 SUBJECTIVE: 89-year-old white male is currently stable, receiving blood transfusion. So far he has been receiving 3 units of packed RBCs. EGD findings noted. He has erosions with antral ulcer. No signs of active bleeding. Hemodynamics were stable.HEENT: Within normal limits. Chest: Clear. Heart: Sounds are regular. Belly is soft, nontender. Good bowel sounds. No neurological deficits. ASSESSMENT AND PLAN: 1. Hypotension with upper gastrointestinal bleeding. Continue on PPI, hematological support. 2. Left arm subclavian thrombosis to the peripherally inserted central catheter line, discontinue Eliquis. 3. Acute kidney injury slowly improving. 4. Tenia cruris methicillin-resistant Staphylococcus epidermidis infection currently off antibiotics. 5. Diarrhea and melena slowly improving, currently on IV Flagyl and will check the labs in the morning. Appreciated GI consult. EGD findings noted and will stop the MiraLAX. LEVEL OF DOCUMENTATION: 25 minutes. cc: Reno Card MD
[2020-01-16] MEDS: SODIUM CHLORIDE 0.9% INJ SCH (21:28)
[2020-01-16] MEDS: ICAR-C PO SCH (21:28)
[2020-01-17] MEDS: CARAFATE PO SCH ×6 (00:09→23:14)
[2020-01-17] MEDS ORDERED: FLAGYL 500 MG/NS 500 MG/100 ML IVPB IV SCH (04:00)
[2020-01-17 06:59] LABS: BASO# 0.06 X1000 (0.0-0.2); BASO% 0.5 % (0.0-0.8); EOS# 0.64 X1000 (0.0-0.7); HEMATOCRIT 28.6 % (42.0-52.0); HEMOGLOBIN 9.2 g/dL (14.0-18.0); IMM GRAN# 0.07 X1000 (0.0-0.04); IMM GRAN% 0.5 % (0.0-0.5); LYMPH# 1.18 X1000 (1.2-3.4); LYMPH% 9.2 % (20.5-51.1); MCH 30.9 PG (27-31); MCHC 32.2 g/dL (33-37); MONO# 0.85 X1000 (0.11-0.59); MONO% 6.6 % (1.7-9.3); MPV 9.8 FL (7.4-10.4); NEUT# 10.01 X1000 (1.4-6.5); NEUT% 78.2 % (42.2-75.2); PLT 172 X1000 (130-400); RBC 2.98 XMIL (4.7-6.1); RDW 18.1 % (11.5-14.5); WBC 12.81 X1000 (4.8-10.8)
[2020-01-17 07:36] LABS: CALCIUM 8.5 mg/dL (8.8-10.2); CREATININE 1.7 mg/dL (0.7-1.2); POTASSIUM 4.2 mmol/L (3.5-5.1); TOTAL BILIRUBIN 0.36 mg/dL (0.20-1.00); TOTAL PROTEIN 4.1 g/dL (6.3-8.3)
[2020-01-17] MEDS ORDERED: DOXYCYCLINE 100 MG in NS 250 ML IV ONE (09:00)
[2020-01-17] MEDS: ICAR-C PO SCH ×2 (09:13→20:25)
[2020-01-17] MEDS: CENTRUM SILVER PO SCH (09:13)
[2020-01-17] MEDS: DIFLUCAN PO SCH (09:13)
[2020-01-17] MEDS: PROTONIX IV SCH ×2 (09:13→20:25)
[2020-01-17] MEDS: FORTICAL NAS SCH (09:19)
[2020-01-17] MEDS: TYLENOL PO PRN ×2 (09:22→20:25)
--- NOTE | 2020-01-17 18:58 | PROGRESS NOTE ---
DATE: 01/17/2020 SUBJECTIVE: The patient is feeling a little better. Complains of leg cramps and is status post 3 units of packed RBCs. Abdominal pain better. Diarrhea is better. PHYSICAL EXAMINATION: Vital Signs: He is in a moribund state, lying in the bed, slightly pale. Chest: Bilateral air entry. Cardiovascular: Distant heart sounds. Abdomen: Belly is soft. No signs of peritonitis. Neurologic: No neurological deficits. LABS: CBC: White cell count 12, hematocrit 28.6, platelets 172. SMA 7: Sodium 143, potassium 4.2, BUN 47, creatinine 1.7, and C difficile toxin was negative. Staph epidermidis isolated in the groin as well as in the urine from the catheter tip. ASSESSMENT AND PLAN: 1. Tinea cruris, on Diflucan. 2. Superinfected with methicillin-resistant Staphylococcus epidermidis. Started on doxycycline 100 mg daily. 3. Left upper arm deep venous thrombosis from the peripherally inserted central catheter line. This was discontinued. Unable to continue Eliquis due to gastrointestinal bleeding. 4. Upper gastrointestinal bleeding due to antral ulcer. Continue IV Protonix. Hold the Eliquis. 5. Chronic systolic congestive heart failure, stable. 6. Chronic kidney failure, stable, with acute kidney injury, improving. 7. Slowly out of the bed with physical therapy. 8. Living will/DO NOT RESUSCITATE, and will closely monitor. LEVEL OF DOCUMENTATION: Twenty-five minutes. cc: Reno Card MD
[2020-01-17] MEDS: SODIUM CHLORIDE 0.9% INJ SCH (20:25)
[2020-01-18] MEDS: CARAFATE PO SCH ×4 (06:09→23:17)
[2020-01-18 06:26] LABS: BASO# 0.05 X1000 (0.0-0.2); BASO% 0.4 % (0.0-0.8); EOS% 4.8 % (0.0-10.0); HEMATOCRIT 29.8 % (42.0-52.0); HEMOGLOBIN 9.4 g/dL (14.0-18.0); IMM GRAN# 0.04 X1000 (0.0-0.04); IMM GRAN% 0.3 % (0.0-0.5); LYMPH# 0.84 X1000 (1.2-3.4); LYMPH% 6.8 % (20.5-51.1); MCH 30.8 PG (27-31); MCHC 31.5 g/dL (33-37); MCV 97.7 FL (81-99); MONO# 0.99 X1000 (0.11-0.59); MPV 9.9 FL (7.4-10.4); NEUT# 9.88 X1000 (1.4-6.5); NEUT% 79.7 % (42.2-75.2); PLT 177 X1000 (130-400); RBC 3.05 XMIL (4.7-6.1); RDW 18.7 % (11.5-14.5)
[2020-01-18 06:48] LABS: ALB/GLOB RATIO 1.6; ALBUMIN 2.4 g/dL (3.5-5.0); CALCIUM 8.5 mg/dL (8.8-10.2); CREATININE 1.6 mg/dL (0.7-1.2); POTASSIUM 3.7 mmol/L (3.5-5.1); TOTAL BILIRUBIN 0.45 mg/dL (0.20-1.00); TOTAL PROTEIN 3.9 g/dL (6.3-8.3)
[2020-01-18] MEDS: PROTONIX IV SCH ×2 (09:28→20:28)
[2020-01-18] MEDS: DIFLUCAN PO SCH (09:28)
[2020-01-18] MEDS: CENTRUM SILVER PO SCH (09:28)
[2020-01-18] MEDS: ICAR-C PO SCH ×2 (09:28→20:28)
[2020-01-18] MEDS: DOXYCYCLINE 100 MG in NS 250 ML IV SCH (09:28)
[2020-01-18] MEDS: FORTICAL NAS SCH ×2 (09:29→09:59)
--- NOTE | 2020-01-18 10:07 | PROGRESS NOTE ---
DATE: 01/18/2020 OBJECTIVE: Vital Signs: Temperature 97.4 degrees, heart rate 89, respirations 17, blood pressure 125/92, O2 saturation earlier was 98% on room air. He had an episode of anxiety and O2 saturation dropped in the 80s. He is currently on oxygen by mask with O2 saturation 93. LABORATORY DATA: Hemoglobin 9.4, hematocrit 29.8, white blood count 13157 with normal differential. Sodium 139, potassium 3.7, BUN 37, creatinine 1.6, improved. Calcium is 8.5. Total protein 3.9, albumin 2.4, low. The patient has had no additional melena or hematochezia. Abdomen is soft. Chest is fairly clear. EGD on 01/16/[address] oCnnolly revealed gastric ulcer and erosive gastritis. He had been on Eliquis, but this is held at the current time. Except for the episode of shortness of breath this morning, he seems to be doing fairly well. PLAN: Continue current therapy. Up in a chair as tolerated. cc: MD Reno Grimm MD
[2020-01-18] MEDS ORDERED: ALBUTEROL NEB INH SCH (18:00)
[2020-01-18] MEDS: DUONEB (A & A) INH SCH ×2 (18:18→22:35)
[2020-01-18] MEDS: SODIUM CHLORIDE 0.9% INJ SCH (20:28)
[2020-01-18] MEDS: TYLENOL PO PRN (23:35)
[2020-01-19] MEDS: DUONEB (A & A) INH SCH ×4 (03:14→23:00)
[2020-01-19] MEDS: CARAFATE PO SCH ×4 (04:30→22:29)
[2020-01-19] MEDS: TYLENOL PO PRN ×2 (06:33→22:29)
--- NOTE | 2020-01-19 09:17 | PROGRESS NOTE ---
DATE: 01/19/2020 VITAL SIGNS: Temperature 96.8 degrees axillary, heart rate 74, respirations 17, blood pressure 113/74, O2 saturation on 3 L nasal oxygen 90%. SUBJECTIVE: He states he feels much better. He is hungry and wants to increase to some solid food. OBJECTIVE: Lungs are clear to auscultation. He required addition of nebulizer treatments with albuterol and Atrovent yesterday afternoon. He rested fairly well last night. PLAN: Continue doxycycline. He has had no additional signs of GI bleeding. CBC will be repeated tomorrow morning as well as BMP. cc: MD Reno Grimm MD
[2020-01-19] MEDS: CENTRUM SILVER PO SCH (09:46)
[2020-01-19] MEDS: ICAR-C PO SCH ×2 (09:46→20:16)
[2020-01-19] MEDS: DIFLUCAN PO SCH (09:46)
[2020-01-19] MEDS: DOXYCYCLINE 100 MG in NS 250 ML IV SCH (09:46)
[2020-01-19] MEDS: FORTICAL NAS SCH (09:47)
[2020-01-19] MEDS: PROTONIX IV SCH ×2 (09:47→20:16)
[2020-01-19] MEDS: SODIUM CHLORIDE 0.9% INJ SCH (20:16)
[2020-01-20] MEDS: DUONEB (A & A) INH SCH ×4 (03:39→21:15)
[2020-01-20] MEDS: CARAFATE PO SCH (05:04)
[2020-01-20 06:45] LABS: BASO# 0.05 X1000 (0.0-0.2); BASO% 0.4 % (0.0-0.8); EOS# 0.52 X1000 (0.0-0.7); EOS% 3.8 % (0.0-10.0); HEMATOCRIT 30.4 % (42.0-52.0); HEMOGLOBIN 9.6 g/dL (14.0-18.0); IMM GRAN# 0.05 X1000 (0.0-0.04); IMM GRAN% 0.4 % (0.0-0.5); LYMPH% 5.1 % (20.5-51.1); MCH 31.3 PG (27-31); MCHC 31.6 g/dL (33-37); MONO% 7.3 % (1.7-9.3); MPV 9.7 FL (7.4-10.4); NEUT# 11.29 X1000 (1.4-6.5); PLT 167 X1000 (130-400); RBC 3.07 XMIL (4.7-6.1); RDW 19.6 % (11.5-14.5); WBC 13.61 X1000 (4.8-10.8)
[2020-01-20 07:14] LABS: CALCIUM 8.5 mg/dL (8.8-10.2); CREATININE 1.4 mg/dL (0.7-1.2); POTASSIUM 3.9 mmol/L (3.5-5.1)
[2020-01-20] MEDS: DIFLUCAN PO SCH (09:26)
[2020-01-20] MEDS: ICAR-C PO SCH ×2 (09:26→20:13)
[2020-01-20] MEDS: CENTRUM SILVER PO SCH (09:26)
[2020-01-20] MEDS: PROTONIX IV SCH ×2 (09:27→20:13)
[2020-01-20] MEDS: SODIUM CHLORIDE 0.9% INJ SCH ×2 (09:28→20:13)
[2020-01-20] MEDS: DOXYCYCLINE 100 MG in NS 250 ML IV SCH (09:28)
[2020-01-20] MEDS: FORTICAL NAS SCH (09:29)
[2020-01-20] MEDS: CARAFATE LIQUID PO SCH ×2 (12:37→20:13)
[2020-01-20] MEDS: TYLENOL PO PRN (20:41)
--- NOTE | 2020-01-20 21:49 | PROGRESS NOTE ---
DATE: 01/20/2020 SUBJECTIVE: Patient is doing much better and he has complaints of leg cramps. He is eating well. No shortness of breath. PHYSICAL EXAMINATION: Vital signs: Temperature is 97 degrees, pulse is 82, blood pressure 123/74, 3 L nasal cannula 98%. HEENT: Within normal limits. Neck: Supple. No lymphadenopathy. Chest: Bilateral air entry. Heart: Sounds are regular. Abdomen: Belly is soft, nontender. Good bowel sounds. Neurologic: No obvious deficits. INVESTIGATIONS: White cell count 13, hematocrit 30, platelets 167,000. Sodium 142, potassium 3.9, BUN 23, creatinine 1.4. ASSESSMENT AND PLAN: 1. Tinea cruris. 2. Methicillin resistant Staphylococcus aureus infection. 3. Upper gastrointestinal bleeding. 4. Deep venous thrombosis in the left arm. 5. Currently, patient is getting doxycycline, Diflucan, Lamisil cream topical, and psychotherapist social worker for rehabilitation, and could not tolerate the Eliquis because of gastrointestinal bleeding. 6. L1 compression fracture, stable. Out of the bed with physical therapy. LEVEL OF DOCUMENTATION: 25 minutes. cc: Reno Card MD
[2020-01-21] MEDS: CARAFATE LIQUID PO SCH ×4 (02:41→20:13)
[2020-01-21] MEDS: DUONEB (A & A) INH SCH ×4 (03:47→22:36)
[2020-01-21] MEDS: TYLENOL PO PRN ×2 (04:46→21:10)
[2020-01-21] MEDS: DOXYCYCLINE 100 MG in NS 250 ML IV SCH (09:42)
[2020-01-21] MEDS: CENTRUM SILVER PO SCH (09:46)
[2020-01-21] MEDS: PROTONIX IV SCH ×2 (09:46→20:14)
[2020-01-21] MEDS: DIFLUCAN PO SCH (09:46)
[2020-01-21] MEDS: SODIUM CHLORIDE 0.9% INJ SCH ×2 (09:47→20:13)
[2020-01-21] MEDS: FORTICAL NAS SCH (09:48)
[2020-01-21] MEDS: ICAR-C PO SCH ×2 (09:59→20:14)
--- NOTE | 2020-01-21 21:04 | PROGRESS NOTE ---
DATE: 01/21/2020 SUBJECTIVE: Patient continues getting better. He is refusing to take the Oliver out. He has a bed in [facility]. PHYSICAL EXAMINATION: Vital signs: Temperature is 97 degrees. Vitals are stable. HEENT: Within normal limits. Chest: Clear. Heart: Sounds are regular. Abdomen: Belly is soft, nontender. Tenia cruris infection is better. Extremities: The left upper extremity swelling is stable. INVESTIGATIONS: White cell count 13, hematocrit 30, platelets 167,000. SMA 7 creatinine 1.4. ASSESSMENT AND PLAN: 1. Tenia cruris with secondary infection with Staph epidermidis. Currently, I am giving a doxycycline, which is sensitive. 2. Tenia infection, Diflucan. 3. Upper gastrointestinal bleeding, stable. 4. Deep vein thrombosis in the left leg. Not able to tolerate Eliquis. 5. Living will, Do Not Resuscitate. Currently stable we will discharge to rehab tomorrow. LEVEL OF DOCUMENTATION: 25 minutes. cc: Reno Card MD
[2020-01-22] MEDS: CARAFATE LIQUID PO SCH ×3 (02:46→13:29)
[2020-01-22] MEDS: DUONEB (A & A) INH SCH ×4 (03:28→16:03)
[2020-01-22] MEDS: TYLENOL PO PRN (05:09)
[2020-01-22 05:18] VITALS: BP 143/74
[2020-01-22] MEDS: DIFLUCAN PO SCH (08:39)
[2020-01-22] MEDS: PROTONIX IV SCH (08:39)
[2020-01-22] MEDS: ICAR-C PO SCH (08:39)
[2020-01-22] MEDS: SODIUM CHLORIDE 0.9% INJ SCH (08:40)
--- NOTE | 2020-01-22 08:46 | DISCHARGE SUMMARY ---
ADMISSION DATE: 01/07/2020 DISCHARGE DATE: 01/22/2020 DISCHARGING DIAGNOSES: 1. Tenia cruris with cellulitis from methicillin-resistant Staphylococcus epidermidis. 2. Chronic L1 compression fracture due to osteoporosis. 3. Chronic pericardial effusion, stable. 4. Acute kidney injury due to hypotension. 5. Metabolic syndrome. 6. Hypertension. 7. Chronic atrial fibrillation. 8. Right rotator cuff repair. 9. Osteoarthritis of left knee and right hip. 10. Benign prostatic hypertrophy. 11. Macular degeneration disease of left eye. 12. Deep vein thrombosis in the left arm due to PICC line. 13. Upper gastrointestinal bleeding due to antral ulcer. 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 Connolly. PROCEDURES: 1. Transfusion of 3 packed RBCs. 2. EGD. Findings are antral ulcers, erosive gastritis. 3. PICC line on the left side. BRIEF HISTORY: Please see the History and Physical that was done on 01/07/2020. In brief he is an 89-year-old white gentleman who was brought in to the hospital with altered mental status, extensive exudate, inflammation around the perianal area, foul-smelling discharge with underlying tenia cruris associated with low blood pressure, tachycardia, acute kidney injury. HOSPITAL COURSE: The patient was admitted in a critical condition. Started on IV fluids, IV vasopressors. The patient was given IV Diflucan along with IV Zosyn. Wound cultures grew MRSA. Latasha, Wound Care consult was obtained. Patient was treated with Vashe with a cloth, and the patient got better in ICU, transferred to step-down unit. Prior to that, he had a poor IV access. PICC line was placed on the left side. The patient developed left arm swelling and subsequently venous Doppler positive for DVT. PICC line was discontinued. Started on Eliquis 5 mg p.o. b.i.d. The hospital course was prolonged due to severe abdominal pain, hypotension, passing black melanotic stool. During this time, the patient has a poor IV access, started on IJ on the neck. Transfused 3 units of packed RBCs. IV Protonix was initiated. After a stable EGD showed antral ulcer with erosive gastritis, anticoagulation was stopped. Follow-up renal function tests, hematocrit was stable. The patient still has a Kulkarni catheter. He continues to have kulkarni until he can ambulate. I spoke to the patient as well as his brother and they made him DNR 1, and the patient has been transferred to the rehab at [facility]. LABORATORY DATA: CBC: White cell count 13.61, hematocrit 30, platelets of 167,000. Sodium 142, potassium 3.9, BUN 23, creatinine 1.4, and the patient was given IV doxycycline, which is sensitive for MRSE. He was maxed out of inpatient physical therapy. DISCHARGE INSTRUCTIONS: 1. Living will DNR 1. 2. Care of the skin, bladder, and bowels. Continue Kulkarni, oxygen 1 L. 3. Wound care in the groin. Out of the bed with Physical Therapy. 4. Stop the Flomax, Lasix 20 daily, Icar-C Plus 1 tablet daily, metoprolol 25 p.o. b.i.d., losartan decreased to 25 mg daily, Citracal with vitamin D 1 tablet daily, calcitonin nasal spray 1 spray in each nostril daily, MiraLAX 17 g daily for constipation, Ultracet 1 tablet q.6 hours p.r.n. pain, Lamisil cream in the groin wound daily, Protonix 40 mg daily, doxycycline 100 daily for 10 days, antithrombotic stockings on both legs, and will follow up. cc: Reno Card MD MTDD
[2020-01-22] MEDS: DOXYCYCLINE 100 MG in NS 250 ML IV SCH (08:54)
[2020-01-22] MEDS: FORTICAL NAS SCH (10:47)
== END 2020-01-22 15:50 | DRG 871 ==
LOC: SUPCPDRO → ED 06:19 → ICU 09:49 → 2N 01-10 12:25
PROVIDERS: ADMIT Internal Medicine; ATTEND Internal Medicine